=== PATIENT | female | born 1965 | race Caucasian/White ===

== ENCOUNTER 2017-01-09 08:07 | Day surgery (SDC) | payer OTHER ==
[~2017-01-09] VITALS: Ht 152.4 cm; Wt 59.1 kg
[~2017-01-09 08:07] MED LIST: ALPR0.5T3 PO; AMLO2.5T PO; IBS MEDICATION
[2017-01-09 08:25] VITALS: BP 115/91; PULSE 109; RESP 20; TEMP 98.3; O2SAT 93
[2017-01-09] MEDS ORDERED: LIDOCAINE 1%/EPINEPHrine 1:100,000 SOLN 20 ML VIAL ONE (08:42)
[2017-01-09] MEDS ORDERED: TRAM50TA PO (08:43)
[2017-01-09] MEDS ORDERED: [UNRECOGNIZED DRUG - OTHER] PO (08:43)
[2017-01-09] MEDS ORDERED: AMLO2.5T PO (08:43)
[2017-01-09] MEDS ORDERED: ALPR0.5T3 PO (08:43)
[2017-01-09] MEDS ORDERED: CHLORHEXIDINE GLUCONATE 2 % 1 PACK (2 CLOTHS) TOPICAL SCH (09:00)
[2017-01-09] MEDS ORDERED: VANCOMYCIN 1000 MG/NS 250 ML - implanted port/tunneled catheter IV SCH ×2 (09:00)
[2017-01-09] MEDS ORDERED: SODIUM CHLORIDE 0.9% 1000 ML IV SCH (09:00)
[2017-01-09] MEDS ORDERED: POVIDONE IODINE 5% (ANTISEPSIS KIT) 4 APPLICATIONS EACH NARE SCH (09:00)
[2017-01-09] MEDS ORDERED: ceFAZolin 2 GM PREMIX 50 ML - implanted port/tunneled catheter insertion IV SCH (09:00)
[2017-01-09] MEDS ORDERED: fentaNYL CITRATE 250 MCG/5 ML AMP ONE (09:28)
[2017-01-09] MEDS ORDERED: MIDAZOLAM HCL 5 MG/5 ML VIAL ONE (09:28)
[2017-01-09] MEDS ORDERED: MIDAZOLAM HCL 2 MG/2 ML VIAL ONE (10:22)
[2017-01-09] MEDS ORDERED: IOHEXOL 350 MG/ML 50 ML BTL (for RAD DIAG) IV ONE (10:57)
[2017-01-09 11:00] VITALS: BP 113/78; PULSE 90; RESP 18; TEMP 97.8; O2SAT 92
[2017-01-09 11:15] VITALS: BP 120/81; PULSE 94; RESP 18; O2SAT 92
[2017-01-09 11:45] VITALS: BP 119/81; PULSE 90; RESP 18; O2SAT 98
--- NOTE | 2017-01-09 11:57 | PD.RAD ---
Post Procedure Progress Note Pre Procedure Diagnosis: (1) Poorly functioning Port Post Procedure Diagnosis: (1) Poorly functioning Port Procedure Date: Jan 09, 2017 Supervising Radiologist: Jonathan Herrmann Proceduralist/Assist: Leann Ku RT(R), Doc Roa RT(R)() Anesthesia: Conscious Sedation Plan of Activity Patient to Unit: ROPU Patient Condition: Good See PACS Report for procedural detail/treatment Central Venous Access Device Procedure 1 Right Infusaport Removal Procedure 2 Left Infusaport Placement single lumen Jonathan Herrmann MD Jan 09, 2017 11:57
[2017-01-09] MEDS ORDERED: SODIUM CHLORIDE 0.9% FLUSH 5 ML FLUSH IVF PRN (12:00)
[2017-01-09 12:15] VITALS: BP 107/76; PULSE 92; RESP 18; O2SAT 98
[2017-01-09 13:05] VITALS: BP 106/75; PULSE 99; RESP 18; O2SAT 98
--- NOTE | 2017-01-10 09:29 | RADRPT ---
EXAM DATE/TIME: 01/09/2017 00:00 [facility] COMPARISON: No previous studies available for comparison. INDICATIONS : Patient has history of bile duct cancer, needs new port. MEDICAL HISTORY : HTN,Intrahepatic cholangiocarcinoma SURGICAL HISTORY : RT port ,Cholecystectomy, Liver resection,Left nephrectomy ENCOUNTER: Initial ACUITY: > 1 year PAIN SCORE: 0/10 SEDATION TIME: 60 minutes 1.) 6 mg midazolam (Versed) IV 2.) 250 mcg fentanyl (Sublimaze) IV Prophylactic antibiotics were administered with appropriate pre-procedure timing. Vancomycin within 2 hrs of procedure, Ancef (or alternative) within 1 hr of procedure. PROCEDURE : 1. Removal of Gtuxtj-e-jgju. 2. Conscious sedation with continuous EKG and oximetry monitoring. The risk, benefits and potential complications of Fauaep-q-Brae removal were discussed. Written conse nt was obtained. The patient was placed supine. The chest wall was prepped in sterile fashion. Full sterile techniqu e was used, including cap, mask, sterile gloves and gown, and a large sterile sheet. Hand hygiene an d 2% chlorhexidine and/or Betadine/alcohol prep was utilized per protocol for cutaneous antisepsis. The skin and subcutaneous tissues were infiltrated with local anesthetic solution. A small incision w as made, the subcutaneous pocket was opened. The port was dissected from the subcutaneous tissues and easily removed in one piece. The pocket incision was closed with subcuticular Vicryl suture. Steri -Strips were applied. Conscious sedation was performed with the prescribed dosages and duration as above. The patient tole rated the procedure well and there were no complications. EKG and oximetry remained stable throughou t the procedure. The patient was sent to post anesthesia recovery in stable condition. CONCLUSION: Uncomplicated port removal as above. Jonathan Herrmann MD on January 10, 2017 at 9:28 Board Certified Radiologist. This report was verified electronically.
--- NOTE | 2017-01-10 09:30 | RADRPT ---
EXAM DATE/TIME: 01/09/2017 08:41 [facility] COMPARISON: No previous studies available for comparison. INDICATIONS : Patient has history of bile duct cancer, in need of port. MEDICAL HISTORY : Intrahepatic cholangiocarcinona,HTN SURGICAL HISTORY : Right Port, Cholecystectomy, liver resection, left nephrectomy ENCOUNTER: Initial ACUITY: >1 year PAIN SCORE: 0/10 FLUORO TIME: 1.9 minutes SEDATION TIME: 60 minutes ACCESS: Right external jugular vein SEDATION: 1.) 6 mg midazolam (Versed) IV 2.) 250 mcg fentanyl (Sublimaze) IV Prophylactic antibiotics were administered with appropriate pre-procedure timing. Vancomycin within 2 hours of procedure, Ancef (or alternative) within 1 hour of procedure. DEVICE: 1. 8 Uzbek single lumen Bard Power Port PROCEDURE : 1. Continuous pulse oximetry and EKG monitoring. 2. Intravenous conscious sedation. 3. Ultrasound guidance for venous access. 4. Fluoroscopic guided implantable central venous port placement. The patient was placed supine. The neck was prepped in sterile fashion. Full sterile technique was u sed, including cap, mask, sterile gloves and gown, and a large sterile sheet. Hand hygiene and 2% ch lorhexidine Betadine was utilized per protocol for cutaneous antisepsis with appropriate dry time for site. The skin and subcutaneous tissues were infiltrated with local anesthetic solution. Under direct ultrasound guidance, central venous access was accomplished in the targeted vessel. The ultrasound images depicting access guidance were stored and saved to PACS for permanent record. A s ubcutaneous pocket was created using blunt dissection. The port was introduced to the pocket. The c atheter tubing was fed through a subcutaneous tunnel to the venotomy site. The catheter tubing was c ut to a suitable length and then was introduced through a valved Peel-Away sheath and positioned with catheter tubing tip at the cavo-atrial junction level. The pocket incision was closed with subcutic ular Vicryl suture. Steri-Strips were applied. The port was flushed and locked with heparin solutio n per protocol. Sterile dressing was applied to the site. The patient tolerated the procedure well. Conscious sedation was performed with the prescribed dosages and duration as above. The patient dakota ated the procedure well and there were no complications. EKG and oximetry remained stable throughout the procedure. The patient was sent to post anesthesia recovery in stable condition. CONCLUSION: Uncomplicated ultrasound and fluoroscopic guided implanted central venous port catheter placement as described in detail above. An 8 Uzbek Power port was placed. Jonathan Herrmann MD on January 10, 2017 at 9:28 Board Certified Radiologist. This report was verified electronically.
== END 2017-01-09 13:23 | disposition home or self-care (01) ==
LOC: HROP 08:07 → HRIP 08:08 → HROP 13:23
PROVIDERS: ATTEND Internal Medicine Hematology & Oncology
DX: Z45.2 Encounter for adjustment and management of vascular access device (principal); C22.1 Intrahepatic bile duct carcinoma; I10 Essential (primary) hypertension
CPT/HCPCS: 36561; 36590; 76937; 77001; 99152; 99153; C1769; C1788; J0690; J1642; J2250; J3010; J3370; J7030; J7050; Q9967

== ENCOUNTER 2018-05-07 21:16 | Inpatient (IN) | payer OTHER ==
[~2018-05-07] VITALS: Ht 154.9 cm; Wt 52.9 kg
[~2018-05-07 21:16] MED LIST changes: +ALPRAZolam 0.5 MG TAB PO PRN; +CALCIUM CARBONATE 500 MG CHEWABLE TAB CHEW PRN; +CEPH-460 PO; +DOCUSATE SODIUM 100 MG CAP PO PRN; +HYDR-3133 PO; -IBS MEDICATION; +MAGNESIUM HYDROXIDE SUSP 30 ML CUP PO PRN; +OXYC1CAP PO; +PROMETHAZINE INJ 25 MG/ML VIAL IM PRN; +SODIUM CHLOR 0.9% 1000 ML INJ 1,000 ML IV ONE; +SODIUM CHLORIDE 0.9% FLUSH 10 ML FLUSH IV FLUSH PRN; +TEMAZEPAM 15 MG CAP PO PRN; +TRAM50TA PO; +ZOFR4TAB3 SL; +[UNRECOGNIZED DRUG - OTHER] PO
[2018-05-07 21:22] VITALS: BP 113/87; PULSE 121; RESP 20; TEMP 97.1; O2SAT 93
[2018-05-07] MEDS: NS + KCL 20 MEQ INJ 1,000 ML IV SCH (22:02)
[2018-05-07] MEDS: SODIUM CHLORIDE 0.9% FLUSH 10 ML FLUSH IV FLUSH SCH (22:03)
[2018-05-08 00:32] VITALS: BP 94/72; PULSE 105; RESP 20; TEMP 100; O2SAT 93
[2018-05-08] MEDS: NS + KCL 20 MEQ INJ 1,000 ML IV SCH ×3 (03:10→19:36)
[2018-05-08 07:01] LABS: AUTOMATED NEUTROPHIL # 2.6 TH/MM3 (1.8-7.7); BASOPHIL % 0.6 % (0.0-2.0); EOSINOPHIL # 0.1 TH/MM3 (0-0.4); EOSINOPHIL % 2.8 % (0.0-4.0); HEMATOCRIT 31.5 % (35.0-46.0); LYMPH % 21.2 % (9.0-44.0); MEAN CELL VOLUME 94.7 FL (80.0-100.0); MEAN CORPUSCULAR HGB CONC 34.8 % (32.0-36.0); MEAN PLATELET VOLUME 7.2 FL (7.0-11.0); MONO % 17.7 % (0.0-8.0); MONOCYTE # 0.8 TH/MM3 (0-0.9); NEUT % 57.7 % (16.0-70.0); PLATELET COUNT 168 TH/MM3 (150-450); RED BLOOD COUNT 3.33 MIL/MM3 (4.00-5.30); WHITE BLOOD COUNT 4.5 TH/MM3 (4.0-11.0)
[2018-05-08 07:20] LABS: ALBUMIN 2.2 GM/DL (3.4-5.0); ALKALINE PHOSPHATASE 66 U/L (45-117); BLOOD UREA NITROGEN 4 MG/DL (7-18); CALCIUM 8.1 MG/DL (8.5-10.1); CREATININE 0.59 MG/DL (0.50-1.00); GLOMERULAR FILTRATION RATE 106 ML/MIN (>89); GLUCOSE,RANDOM 66 MG/DL (74-106); TOTAL PROTEIN 5.2 GM/DL (6.4-8.2)
[2018-05-08 07:21] LABS: ALT (GPT) 14 U/L (10-53); AST (GOT) 33 U/L (15-37); BICARBONATE 21.5 MEQ/L (21.0-32.0); CHLORIDE 103 MEQ/L (98-107); SODIUM (NA) 137 MEQ/L (136-145); TOTAL BILIRUBIN ADULT 0.8 MG/DL (0.2-1.0)
[2018-05-08 08:00] VITALS: BP 92/68; PULSE 104; RESP 16; TEMP 100.8; O2SAT 98
[2018-05-08] MEDS: SODIUM CHLORIDE 0.9% FLUSH 10 ML FLUSH IV FLUSH SCH ×2 (09:00→21:00)
[2018-05-08 09:06] VITALS: BP 133/70; PULSE 72; RESP 17; TEMP 97.8; O2SAT 94
[2018-05-08] MEDS: ACETAMINOPHEN 325 MG TAB PO PRN (11:12)
[2018-05-08 12:00] VITALS: BP 90/52; PULSE 100; RESP 16; TEMP 97.3; O2SAT 98
--- NOTE | 2018-05-08 13:01 | HHI.HP ---
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 The patient presented to the hospital with complaint of intractable nausea and vomiting. She has chronic abdominal pain and states that she has not been able to take her pain medications due to vomiting. Workup in the emergency room with urinalysis concerning for UTI. Has been requiring IV antiemetics. Patient reports she has been doing fairly well from her cancer standpoint. She has a follow-up appointment with her oncologist at [facility] in a couple of weeks. Last bowel movement was yesterday. She denies dysuria or urinary frequency. She has 1 functioning kidney. Prior history of left nephrectomy. Review of Systems Constitutional: DENIES: Fever, Chills Respiratory: DENIES: Shortness of breath Gastrointestinal: COMPLAINS OF: Abdominal pain, Nausea, Vomiting Genitourinary: DENIES: Dysuria Except as stated in HPI: all other systems reviewed are Neg Past Family Social History Past Medical History Metastatic cholangiocarcinoma to the liver, lungs Hyperlipidemia Hypertension Nonfunctioning left kidney status post nephrectomy Irritable bowel syndrome Anxiety Past Surgical History Port placement Cholecystectomy in 2014 Liver resection in 2013 Nephrectomy left in 2011 Reported Medications Reported Meds & Active Scripts Active Zofran Odt (Ondansetron Odt) 4 Mg Tab 4 Mg SL Q6HR PRN Reported Oxycodone (Oxycodone HCl) 5 Mg Cap 5 Mg PO Q4H PRN [nausea] 1 Tab PO DIRECTED PRN Tramadol (Tramadol HCl) 50 Mg Tab 50 Mg PO TID PRN Alprazolam 0.5 Mg Tab 0.5 Mg PO TID PRN Amlodipine (Amlodipine Besylate) 2.5 Mg Tab 2.5 Mg PO HS Allergies: Coded Allergies: bee venom protein (honey bee) (Verified Allergy, Severe, Hives, 05/07/18) pegfilgrastim (Verified Allergy, Severe, Swelling, 05/07/18) pt. denies sulfamethoxazole (Verified Allergy, Severe, RASH, WEAKNESS, N/V, 05/07/18) trimethoprim (Verified Allergy, Severe, RASH, WEAKNESS, N/V, 05/07/18) diatrizoate meglumine (Verified Adverse Reaction, Mild, Nausea/Vomiting, ) DOES NOT HAVE REACTION TO CONTRAST BUT HAS NAUSEA; HAS NEVER BEEN PREMEDICATED FOR CONTRAST; ONLY HAS ONE KIDNEY gadobenic acid (Verified Adverse Reaction, Mild, Nausea/Vomiting, 05/07/18) DOES NOT HAVE REACTION TO CONTRAST BUT HAS NAUSEA; HAS NEVER BEEN PREMEDICATED FOR CONTRAST; ONLY HAS ONE KIDNEY gadodiamide (Verified Adverse Reaction, Mild, Nausea/Vomiting, 05/07/18) DOES NOT HAVE REACTION TO CONTRAST BUT HAS NAUSEA; HAS NEVER BEEN PREMEDICATED FOR CONTRAST; ONLY HAS ONE KIDNEY gadoteridol (Verified Adverse Reaction, Mild, Nausea/Vomiting, 05/07/18) DOES NOT HAVE REACTION TO CONTRAST BUT HAS NAUSEA; HAS NEVER BEEN PREMEDICATED FOR CONTRAST; ONLY HAS ONE KIDNEY iodixanol (Verified Adverse Reaction, Mild, Nausea/Vomiting, 05/07/18) DOES NOT HAVE REACTION TO CONTRAST BUT HAS NAUSEA; HAS NEVER BEEN PREMEDICATED FOR CONTRAST; ONLY HAS ONE KIDNEY iohexol (Verified Adverse Reaction, Mild, Nausea/Vomiting, 05/07/18) DOES NOT HAVE REACTION TO CONTRAST BUT HAS NAUSEA; HAS NEVER BEEN PREMEDICATED FOR CONTRAST; ONLY HAS ONE KIDNEY Family History Reviewed and found to be noncontributory. Social History Denies tobacco or alcohol use. Physical Exam Vital Signs Vital Signs Date Time Temp Pulse Resp B/P (MAP) Pulse Ox O2 Delivery O2 Flow Rate FiO2 05/08/18 09:06 05/08/18 08:00 100.8 104 16 92/68 (76) 98 05/08/18 00:32 100.0 105 20 94/72 (79) 93 05/07/18 21:22 97.1 121 20 113/87 (96) 93 Physical Exam GENERAL: Patient appears older than stated age, in no apparent distress. SKIN: No rashes, ecchymoses or lesions. Cool and dry. HEAD: Atraumatic. Normocephalic. No temporal or scalp tenderness. EYES: Pupils equal round and reactive. Extraocular motions intact. No scleral icterus. No injection or drainage. ENT: Nose without bleeding, purulent drainage or septal hematoma. Throat without erythema, tonsillar hypertrophy or exudate. Uvula midline. Airway patent. NECK: Trachea midline. No JVD or lymphadenopathy. Supple, nontender, no meningeal signs. CARDIOVASCULAR: Regular rate and rhythm without murmurs, gallops, or rubs. RESPIRATORY: Clear to auscultation. Breath sounds equal bilaterally. No wheezes , rales, or rhonchi. GASTROINTESTINAL: Abdomen soft, diffusely tender to palpation. Normal and active bowel sounds. MUSCULOSKELETAL: Extremities without clubbing, cyanosis, or edema. No joint tenderness, effusion, or edema noted. No calf tenderness. Negative Homans sign bilaterally. NEUROLOGICAL: Awake and alert. Cranial nerves II through XII intact. Motor and sensory grossly within normal limits. Five out of 5 muscle strength in all muscle groups. Normal speech. Laboratory Laboratory Tests Test 05/08/18 06:15 White Blood Count 4.5 Red Blood Count 3.33 Hemoglobin 11.0 Hematocrit 31.5 Mean Corpuscular Volume 94.7 Mean Corpuscular Hemoglobin 33.0 Mean Corpuscular Hemoglobin Concent 34.8 Red Cell Distribution Width 13.0 Platelet Count 168 Mean Platelet Volume 7.2 Neutrophils (%) (Auto) 57.7 Lymphocytes (%) (Auto) 21.2 Monocytes (%) (Auto) 17.7 Eosinophils (%) (Auto) 2.8 Basophils (%) (Auto) 0.6 Neutrophils # (Auto) 2.6 Lymphocytes # (Auto) 1.0 Monocytes # (Auto) 0.8 Eosinophils # (Auto) 0.1 Basophils # (Auto) 0.0 CBC Comment DIFF FINAL Differential Comment Blood Urea Nitrogen 4 Creatinine 0.59 Random Glucose 66 Total Protein 5.2 Albumin 2.2 Calcium Level 8.1 Alkaline Phosphatase 66 Aspartate Amino Transf (AST/SGOT) 33 Alanine Aminotransferase (ALT/SGPT) 14 Total Bilirubin 0.8 Sodium Level 137 Potassium Level 3.4 Chloride Level 103 Carbon Dioxide Level 21.5 Anion Gap 13 Estimat Glomerular Filtration Rate 106 Result Diagram: 05/08/1815 05/08/1815 Caprini VTE Risk Assessment Caprini VTE Risk Assessment: Mod/High Risk (score >= 2) Caprini Risk Assessment Model Point Value = 1 Point Value = 2 Point Value = 3 Point Value = 5 Age 41-60 Minor surgery BMI > 25 kg/m2 Swollen legs Varicose veins or History of unexplained or recurrent spontaneous Oral contraceptives or hormone replacement Sepsis (< 1 month) Serious lung disease, including pneumonia (< 1 month) Abnormal pulmonary function Acute myocardial infarction Congestive heart failure (< 1 month) History of inflammatory bowel disease Medical patient at bed rest Age 61-74 Arthroscopic surgery Major open surgery (> 45 min) Laparoscopic surgery (> 45 min) Malignancy Confined to bed (> 72 hours) Immobilizing plaster cast Central venous access Age >= 75 History of VTE Family history of VTE Factor V Leiden Prothrombin [id number] Lupus anticoagulant Anticardiolipin antibodies Elevated serum homocysteine Heparin-induced thrombocytopenia Other congenital or acquired thrombophilia Stroke (< 1 month) Elective arthroplasty Hip, pelvis, or leg fracture Acute spinal cord injury (< 1 month) Prophylaxis Regimen Total Risk Factor Score Risk Level Prophylaxis Regimen 0-1 Low Early ambulation 2 Moderate Order ONE of the following: *Sequential Compression Device (SCD) *Heparin 5000 units SQ BID 3-4 Higher Order ONE of the following medications: *Heparin 5000 units SQ TID *Enoxaparin/Lovenox 40 mg SQ daily (WT < 150 kg, CrCl > 30 mL/min) *Enoxaparin/Lovenox 30 mg SQ daily (WT < 150 kg, CrCl > 10-29 mL/min) *Enoxaparin/Lovenox 30 mg SQ BID (WT < 150 kg, CrCl > 30 mL/min) AND/OR *Sequential Compression Device (SCD) 5 or more Highest Order ONE of the following medications: *Heparin 5000 units SQ TID (Preferred with Epidurals) *Enoxaparin/Lovenox 40 mg SQ daily (WT < 150 kg, CrCl > 30 mL/min) *Enoxaparin/Lovenox 30 mg SQ daily (WT < 150 kg, CrCl > 10-29 mL/min) *Enoxaparin/Lovenox 30 mg SQ BID (WT < 150 kg, CrCl > 30 mL/min) AND *Sequential Compression Device (SCD) Assessment and Plan Problem List: (1) Intractable nausea and vomiting ICD Code: R11.2 - Nausea with vomiting, unspecified Plan: Intractable nausea and vomiting in the cancer patient. She has been receiving immunotherapy. Probable UTI contributing. - Continue supportive care with IV fluid and antiemetics. She is improving. Treat UTI. (2) UTI (urinary tract infection) ICD Code: N39.0 - Urinary tract infection, site not specified Plan: Continue Rocephin Follow cultures (3) Cholangiocarcinoma metastatic to liver ICD Code: C22.1 - Intrahepatic bile duct carcinoma; C78.7 - Secondary malignant neoplasm of liver and intrahepatic bile duct Plan: Patient is currently receiving immunotherapy at [facility]. Advised her to follow-up outpatient. (4) Cholangiocarcinoma metastatic to left lung ICD Code: C22.1 - Intrahepatic bile duct carcinoma; C78.02 - Secondary malignant neoplasm of left lung Plan: Patient is currently receiving immunotherapy at [facility]. Advised her to follow-up outpatient. (5) Cholangiocarcinoma metastatic to right lung ICD Code: C22.1 - Intrahepatic bile duct carcinoma; C78.01 - Secondary malignant neoplasm of right lung Plan: Patient is currently receiving immunotherapy at [facility]. Advised her to follow-up outpatient. (6) Hypertension ICD Code: I10 - Essential (primary) hypertension (7) Anxiety ICD Code: F41.9 - Anxiety disorder, unspecified Plan: Continue home dose medications (8) Chronic pain ICD Code: G89.29 - Other chronic pain Plan: Continue home dose medications Briseyda Phelps MD May 08, 2018 13:01
[2018-05-08] MEDS ORDERED: cefTRIAXone INJ 1,000 MG in SODIUM CHLORIDE 0.9% INJ 100 ML IV SCH (16:00)
[2018-05-08 16:52] VITALS: BP 98/60; PULSE 96; RESP 18; TEMP 97.5; O2SAT 97
[2018-05-08 20:56] VITALS: BP 103/84; PULSE 94; RESP 20; TEMP 98.9; O2SAT 93
[2018-05-09] VITALS (8 sets, daily range): BP systolic 94–121; BP diastolic 58–77; PULSE 103–123; RESP 18–20; TEMP 97.1–102.3; O2SAT 86–95
[2018-05-09] MEDS: ACETAMINOPHEN 325 MG TAB PO PRN ×2 (00:11→15:40)
[2018-05-09 06:36] LABS: HEMATOCRIT 34.9 % (35.0-46.0); HEMOGLOBIN 11.1 GM/DL (11.6-15.3); MEAN CELL VOLUME 96.6 FL (80.0-100.0); MEAN CORPUSCULAR HEMOGLOBIN 30.8 PG (27.0-34.0); MEAN CORPUSCULAR HGB CONC 31.9 % (32.0-36.0); MEAN PLATELET VOLUME 6.7 FL (7.0-11.0); PLATELET COUNT 179 TH/MM3 (150-450); RED BLOOD COUNT 3.61 MIL/MM3 (4.00-5.30); RED CELL DISTRIBUTION WIDTH 12.6 % (11.6-17.2); WHITE BLOOD COUNT 4.2 TH/MM3 (4.0-11.0)
[2018-05-09 06:44] LABS: BICARBONATE 21.3 MEQ/L (21.0-32.0)
[2018-05-09 06:47] LABS: CREATININE 0.45 MG/DL (0.50-1.00)
[2018-05-09] MEDS: SODIUM CHLORIDE 0.9% FLUSH 10 ML FLUSH IV FLUSH SCH ×2 (08:06→21:00)
[2018-05-09] MEDS: METOCLOPRAMIDE HCL 10 MG/2 ML VIAL IVS PRN ×2 (10:17→20:40)
[2018-05-09] MEDS: CEFEPIME INJ 2,000 MG in SODIUM CHLORIDE 0.9% INJ 100 ML IV SCH ×2 (10:17→17:20)
[2018-05-09] MEDS: NS + KCL 20 MEQ INJ 1,000 ML IV SCH (10:18)
[2018-05-09] MEDS ORDERED: ONDANSETRON ODT 4 MG TAB PO PRN (11:00)
--- NOTE | 2018-05-09 11:00 | RADRPT ---
EXAM DATE: 05/09/2018 10:53 AM EDT AGE/SEX: 52 years / Female INDICATIONS: Fever CLINICAL DATA: This is the patient's initial encounter. Patient reports that signs and symptoms have been present for 1 day and indicates a pain score of 2/10. MEDICAL/SURGICAL HISTORY: Carcinoma, lung. Carcinoma, liver . Hepatectomy, left nephrectomy COMPARISON: [facility], CT CHEST W/O CONTRAST, 08/02/2017. . FINDINGS: Frontal and lateral views of the chest demonstrate a normal-sized cardiac silhouette. Left chest wall Xjenuv-y-Kair is present with distal tip in the superior vena cava. There is a moderate size left pl eural-based opacity characteristic of an effusion. Small right pleural effusion is seen. There is com pressive atelectasis and mild consolidation in the lower lung zones bilaterally. Multiple bilateral p ulmonary nodules remain visualized. There is no pneumothorax. Bones demonstrate no acute finding. The re are innumerable surgical clips in the upper abdomen. CONCLUSION: 1. Moderate size left pleural effusion with associated compressive atelectasis and/or consolidation. 2. There is mild atelectasis versus consolidation at the right lung base. A small right pleural effu love is present. 3. Multiple bilateral pulmonary nodules are consistent with the known history of metastatic disease. Electronically signed by: Oscar Martinez MD 05/09/2018 10:58 AM EDT
--- NOTE | 2018-05-09 11:28 | HHI.PR ---
Subjective Remarks Pt not very talkative. She does admit to nausea and is agreeable to getting nausea medication. Admits to abdominal pain. dneies any vomiting. Pt states she is cold. Objective Vitals Vital Signs Date Time Temp Pulse Resp B/P (MAP) Pulse Ox O2 Delivery O2 Flow Rate FiO2 05/09/18 07:58 99.3 109 18 107/77 (87) 05/09/18 03:48 99.4 106 20 94/58 (70) 90 05/09/18 00:15 20 92 05/09/18 00:11 101.5 108 20 104/76 (85) 86 05/08/18 20:56 98.9 94 20 103/84 (90) 93 05/08/18 16:52 97.5 96 18 98/60 (73) 97 05/08/18 12:00 97.3 100 16 90/52 (65) 98 I/O 05/08/18 05/08/18 05/08/18 05/09/18 05/09/18 05/09/18 07:00 15:00 23:00 07:00 15:00 23:00 Intake Total 1683 ml 799 ml 1200 ml Output Total 3 ml Balance 1683 ml 796 ml 1200 ml Intake IV Total 1683 ml 799 ml 1200 ml Output Urine Total 3 ml # Voids 2 1 Result Diagram: 05/09/18 0600 05/09/18 0600 Imaging Last Impressions Chest X-Ray 05/09/18 0000 Signed Impressions: CONCLUSION: 1. Moderate size left pleural effusion with associated compressive atelectasis and/or consolidation. 2. There is mild atelectasis versus consolidation at the right lung base. A sm all right pleural effusion is present. 3. Multiple bilateral pulmonary nodules are consistent with the known history of metastatic disease. Objective Remarks GENERAL: Patient appears older than stated age CARDIOVASCULAR: Regular rate and rhythm without murmurs RESPIRATORY: Clear to auscultation. Breath sounds equal bilaterally. No wheezes GASTROINTESTINAL: Abdomen soft, diffusely tender to palpation. Normal and active bowel sounds. MUSCULOSKELETAL: Extremities without edema. NEUROLOGICAL: Awake and alert but very quiet. hold covers over herself. Normal speech. 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 She has been receiving immunotherapy. U/A initially was concerning for a UTI however urine cx 10-50, 000 CFU/ML mixed gram pos sophie (prob contaminant) (2) fever: Tmax 101.5 source unknown. Urine cx neg. blood cx neg x 2 days. switch abx to cefepime. ID consulted for further recs. (3) Cholangiocarcinoma metastatic to liver Patient is currently receiving immunotherapy at [facility]. Advised her to follow-up outpatient. Discussed w and he tells me that he will be coming later today and will bring her med list for us to know what chemo she is on. (4) Cholangiocarcinoma metastatic to left and right lung Patient is currently receiving immunotherapy at [facility]. Advised her to follow-up outpatient. (5) Hypertension stable (7) Anxiety Continue home dose medications (8) Chronic pain Continue home dose medications Discharge Planning ID consulted for further eval for fevers of unknown source. Suly Valdovinos MD May 09, 2018 11:28
--- NOTE | 2018-05-09 14:39 | RADRPT ---
EXAM DATE: 05/09/2018 1:14 PM EDT AGE/SEX: 52 years / Female INDICATIONS: Short of breath. Abnormal chest x-ray. Evaluate for pleural effusion. CLINICAL DATA: This is the patient's initial encounter. Patient reports that signs and symptoms have been present for 2 days and indicates a pain score of 0/10. MEDICAL/SURGICAL HISTORY: Cardiovascular disease. Hypertension. Liver cancer. Lung METS. Cholecy stectomy. Nephrectomy, left. Partial hepatectomy. RADIATION DOSE: 6.45 CTDI (mGy) COMPARISON: [facility], CT CHEST W/O CONTRAST, 08/02/2017. . TECHNIQUE: Multiple contiguous axial images were obtained through the chest without contrast. Image s were obtained in suspended respiration using multiple row detector helical technique. Using automa yuli exposure control and adjustment of the mA and/or kV according to patient size, radiation dose was kept as low as reasonably achievable to obtain optimal diagnostic quality images. FINDINGS: There is a tiny subcentimeter spiculated density right apex of the lung. There are multiple nodules a nd masses in both lungs the largest one is in right upper lobe measures almost 1 cm in size highly lee spicious for metastatic disease. Compared to the prior study from 2017 the nodules appears smaller fo r the most part. Large left pleural effusion is present. In the left upper lobe anteriorly there lucas ears to be a pleural-based mass measures almost 3.4 cm in size consistent with pleural-based metastat ic disease measures almost 1.5 cm previously and therefore larger since 2017. There is a separate ple ural-based metastatic disease in the left chest anterolaterally measures 2.5 cm also larger. There ap pears to be loculated fluid as well in the right minor fissure measures 2 cm in size. There is dense airspace consolidation of left lower lung and/or compressive collapse. Calcified left hilar lymph nod e is present benign in appearance and central obstructing mass in the left hilar area is difficult to exclude there are diverticuli in the visualized colon of the upper abdomen. . There are small lymph nodes within the mediastinum the largest one in pretracheal location measures almost 1.2 cm in size m ost likely benign. There is a tiny right pleural effusion. CONCLUSION: 1. There are lung nodules consistent with metastatic disease, however overall they are smaller lupis red to the prior study from 2017. 2. There is a large left pleural effusion not present previously with pleural-based masses on the le ft side appears larger since the prior exam characteristic of worsening pleural-based metastatic dise ase. 3. Left lung base consolidation and/or compressive collapse. Electronically signed by: Evelin Hendrickson MD 05/09/2018 1:31 PM EDT
[2018-05-10] VITALS (7 sets, daily range): BP systolic 92–158; BP diastolic 53–85; PULSE 100–122; RESP 18–20; TEMP 97.4–101.4; O2SAT 91–92
[2018-05-10] MEDS: CEFEPIME INJ 2,000 MG in SODIUM CHLORIDE 0.9% INJ 100 ML IV SCH ×3 (03:10→20:29)
[2018-05-10] MEDS: NS + KCL 20 MEQ INJ 1,000 ML IV SCH ×3 (03:10→17:48)
[2018-05-10 06:47] LABS: CHLORIDE 102 MEQ/L (98-107); SODIUM (NA) 133 MEQ/L (136-145)
[2018-05-10 06:51] LABS: BICARBONATE 18.2 MEQ/L (21.0-32.0); CALCIUM 7.9 MG/DL (8.5-10.1); GLUCOSE,RANDOM 60 MG/DL (74-106)
[2018-05-10 06:52] LABS: BLOOD UREA NITROGEN LESS THAN 1 MG/DL (7-18)
[2018-05-10 06:55] LABS: CREATININE 0.48 MG/DL (0.50-1.00); GLOMERULAR FILTRATION RATE 135 ML/MIN (>89)
[2018-05-10 07:14] LABS: AUTOMATED NEUTROPHIL # 3.5 TH/MM3 (1.8-7.7); BASOPHIL % 0.3 % (0.0-2.0); EOSINOPHIL # 0.2 TH/MM3 (0-0.4); EOSINOPHIL % 4.2 % (0.0-4.0); HEMATOCRIT 31.9 % (35.0-46.0); LYMPH % 13.5 % (9.0-44.0); LYMPHOCYTE # 0.7 TH/MM3 (1.0-4.8); MEAN CELL VOLUME 94.8 FL (80.0-100.0); MEAN CORPUSCULAR HEMOGLOBIN 32.7 PG (27.0-34.0); MEAN CORPUSCULAR HGB CONC 34.5 % (32.0-36.0); MEAN PLATELET VOLUME 7.5 FL (7.0-11.0); MONO % 12.4 % (0.0-8.0); MONOCYTE # 0.6 TH/MM3 (0-0.9); NEUT % 69.6 % (16.0-70.0); PLATELET COUNT 171 TH/MM3 (150-450); RED BLOOD COUNT 3.37 MIL/MM3 (4.00-5.30)
[2018-05-10] MEDS ORDERED: MAGNESIUM OXIDE 400 MG TAB PO ONE (07:15)
[2018-05-10] MEDS: ACETAMINOPHEN 325 MG TAB PO PRN ×2 (08:48→23:55)
[2018-05-10] MEDS: SODIUM CHLORIDE 0.9% FLUSH 10 ML FLUSH IV FLUSH SCH ×2 (08:48→23:30)
[2018-05-10] MEDS: MAGNESIUM SULFATE 1 GM PREMIX 100 ML IV SCH ×2 (08:48→10:27)
[2018-05-10] MEDS: METOCLOPRAMIDE HCL 10 MG/2 ML VIAL IVS PRN (09:44)
--- NOTE | 2018-05-10 10:42 | HHI.PR ---
Subjective Remarks Pt feeling a little bit better today, had nausea earlier this morning but none at this time. Still w abdominal pain but this is chronic. Feels cold. Discussed w RN, pt received pain meds x 2 hours. Objective Vitals Vital Signs Date Time Temp Pulse Resp B/P (MAP) Pulse Ox O2 Delivery O2 Flow Rate FiO2 05/10/18 09:59 158/62 (94) 05/10/18 07:32 101.4 117 20 117/85 (96) 92 05/10/18 00:00 98.8 109 18 92/69 (77) 91 05/09/18 20:00 97.1 103 18 106/65 (79) 91 05/09/18 18:07 98.7 05/09/18 15:40 102.3 123 18 101/65 (77) 95 05/09/18 15:37 18 05/09/18 11:37 100.0 116 18 121/77 (92) I/O 05/09/18 05/09/18 05/09/18 05/10/18 05/10/18 05/10/18 07:00 15:00 23:00 07:00 15:00 23:00 Intake Total 1200 ml 1119 ml 240 ml Balance 1200 ml 1119 ml 240 ml Intake Oral 120 ml 240 ml IV Total 1200 ml 999 ml # Voids 1 2 1 Result Diagram: 05/10/18 0600 05/10/18 0600 Imaging Last Impressions Chest X-Ray 05/09/18 0000 Signed Impressions: CONCLUSION: 1. Moderate size left pleural effusion with associated compressive atelectasis and/or consolidation. 2. There is mild atelectasis versus consolidation at the right lung base. A sm all right pleural effusion is present. 3. Multiple bilateral pulmonary nodules are consistent with the known history of metastatic disease. Chest CT 05/09/18 0000 Signed Impressions: CONCLUSION: 1. There are lung nodules consistent with metastatic disease, however overall they are smaller compared to the prior study from 2017. 2. There is a large left pleural effusion not present previously with pleural- based masses on the left side appears larger since the prior exam characteristi c of worsening pleural-based metastatic disease. 3. Left lung base consolidation and/or compressive collapse. Objective Remarks GENERAL: Patient appears older than stated age CARDIOVASCULAR: Regular rate and rhythm without murmurs RESPIRATORY: Clear to auscultation. Breath sounds equal bilaterally. No wheezes GASTROINTESTINAL: Abdomen soft, diffusely tender to palpation. Normal and active bowel sounds. MUSCULOSKELETAL: Extremities without edema. NEUROLOGICAL: Awake and alert but very quiet. hold covers over herself. Normal speech. 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 She has been receiving immunotherapy. U/A initially was concerning for a UTI however urine cx 10-50, 000 CFU/ML mixed gram pos sophie (prob contaminant) (2) fever: Tmax 102.5 source unknown. Urine cx neg. blood cx neg x 2 days. on iv cefepime. ID consulted for further recs. CT chest shows large left pleural effusion not present previously w pleural based masses on the left side which appear larger since prior exam characteristic of worsening pleural-based metastatic disease. A consult has been placed to medical oncology team for further recs. Pt was seeing Dr. Blackmon prior to going to [facility]. 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 Advised her to follow-up outpatient. Discussed w and he brought in the latest CT chest/abd/pelvis and this has been placed on the chart. (4) Hypertension stable (5) Anxiety Continue home dose medications (6) Chronic pain Continue home dose medications Discharge Planning awaiting recs from ID and med onc Suly Valdovinos MD May 10, 2018 10:42
--- NOTE | 2018-05-10 13:43 | PD.ID.CON ---
History of Present Illness Service ID Consult Requested By Dr Valdovinos Reason for Consult fever. Metastatic bilie duct cancer Primary Care Physician Unknown Diagnoses: History of Present Illness 52 yo female with metastatic cholangiocarcinoma,with mets to the liver and lungs receiving immunotherapy at [facility]. The patient presented to the hospital with complaint of intractable nausea and vomiting. She also has some disuria Workup in the emergency room with urinalysis concerning for UTI. Has been requiring IV antiemetics. Patient reports she has been doing fairly well from her cancer standpoint. She has a follow-up appointment with her oncologist at [facility] in a couple of weeks. Last bowel movement was yesterday. She denies dysuria or urinary frequency. She has 1 functioning kidney. Prior history of left nephrectomy. Urine culture with mixed gram+ Blood clx negative @ 3 days No leukocytosis, but fever up to 102.3 she is on cefepime Review of Systems Except as stated in HPI: all other systems reviewed are Neg Past Family Social History Allergies: Coded Allergies: bee venom protein (honey bee) (Verified Allergy, Severe, Hives, 05/07/18) pegfilgrastim (Verified Allergy, Severe, Swelling, 05/07/18) pt. denies sulfamethoxazole (Verified Allergy, Severe, RASH, WEAKNESS, N/V, 05/07/18) trimethoprim (Verified Allergy, Severe, RASH, WEAKNESS, N/V, 05/07/18) diatrizoate meglumine (Verified Adverse Reaction, Mild, Nausea/Vomiting, ) DOES NOT HAVE REACTION TO CONTRAST BUT HAS NAUSEA; HAS NEVER BEEN PREMEDICATED FOR CONTRAST; ONLY HAS ONE KIDNEY gadobenic acid (Verified Adverse Reaction, Mild, Nausea/Vomiting, 05/07/18) DOES NOT HAVE REACTION TO CONTRAST BUT HAS NAUSEA; HAS NEVER BEEN PREMEDICATED FOR CONTRAST; ONLY HAS ONE KIDNEY gadodiamide (Verified Adverse Reaction, Mild, Nausea/Vomiting, 05/07/18) DOES NOT HAVE REACTION TO CONTRAST BUT HAS NAUSEA; HAS NEVER BEEN PREMEDICATED FOR CONTRAST; ONLY HAS ONE KIDNEY gadoteridol (Verified Adverse Reaction, Mild, Nausea/Vomiting, 05/07/18) DOES NOT HAVE REACTION TO CONTRAST BUT HAS NAUSEA; HAS NEVER BEEN PREMEDICATED FOR CONTRAST; ONLY HAS ONE KIDNEY iodixanol (Verified Adverse Reaction, Mild, Nausea/Vomiting, 05/07/18) DOES NOT HAVE REACTION TO CONTRAST BUT HAS NAUSEA; HAS NEVER BEEN PREMEDICATED FOR CONTRAST; ONLY HAS ONE KIDNEY iohexol (Verified Adverse Reaction, Mild, Nausea/Vomiting, 05/07/18) DOES NOT HAVE REACTION TO CONTRAST BUT HAS NAUSEA; HAS NEVER BEEN PREMEDICATED FOR CONTRAST; ONLY HAS ONE KIDNEY Past Medical History Metastatic cholangiocarcinoma to the liver, lungs Hyperlipidemia Hypertension Nonfunctioning left kidney status post nephrectomy Irritable bowel syndrome Anxiety Past Surgical History Port placement Cholecystectomy in 2014 Liver resection in 2013 Nephrectomy left in 2011 Active Ordered Medications Medications where reviewed in EMR Antibiotics Include: cefepime Family History Reviewed and found to be noncontributory. Social History Denies tobacco or alcohol use. Physical Exam Vital Signs Vital Signs Date Time Temp Pulse Resp B/P (MAP) Pulse Ox O2 Delivery O2 Flow Rate FiO2 05/10/18 11:14 98.9 112 20 95/53 (67) 92 05/10/18 09:59 158/62 (94) 05/10/18 07:32 101.4 117 20 117/85 (96) 92 05/10/18 00:00 98.8 109 18 92/69 (77) 91 05/09/18 20:00 97.1 103 18 106/65 (79) 91 05/09/18 18:07 98.7 05/09/18 15:40 102.3 123 18 101/65 (77) 95 05/09/18 15:37 18 Physical Exam CONSTITUTIONAL/GENERAL: This is an adequately nourished patient, in no apparent distress. TUBES/LINES/DRAINS: PORT in place L chest - site OK SKIN: No jaundice, rashes, or lesions. Ecchymoses on upper extremities. No wounds seen anteriorly. Skin temperature appropriate. + diaphoretic. HEAD: Atraumatic. Normocephalic. EYES: Pupils equal and round and reactive. Extraocular motions intact. No scleral icterus. No injection or drainage. Fundi not examined. ENT: Hearing grossly normal. Nose without bleeding or purulent drainage. Throat without visible erythema, exudates, masses, or lesions. NECK: Trachea midline. Supple, nontender. No palpable thyroid enlargement or nodularity. CARDIOVASCULAR: Regular rate and rhythm without murmurs, gallops, or rubs. No JVD. Peripheral pulses symmetric. RESPIRATORY/CHEST: Symmetric, unlabored respirations. Clear to auscultation. Breath sounds equal bilaterally. No wheezes, rales, or rhonchi. GASTROINTESTINAL: Abdomen soft, tender LUQ, ill defined mass, RUQ with well healed scar, nondistended. No hepato-splenomegaly, or palpable masses. No guarding. Bowel sounds present. GENITOURINARY: Without palpable bladder distension. MUSCULOSKELETAL: Extremities without clubbing, cyanosis, or edema. No joint tenderness or effusion noted. No calf tenderness. No mottling or clubbing. LYMPHATICS: No palpable cervical or supraclavicular adenopathy. NEUROLOGICAL: Awake and alert. Motor and sensory grossly within normal limits. Follows commands. Cognitively sharp. Moves all extremities. PSYCHIATRIC: No obvious anxiety/depression. no apparent hallucinations or other psychotic thought process. Laboratory Laboratory Tests Test 05/10/18 06:00 White Blood Count 5.0 Red Blood Count 3.37 Hemoglobin 11.0 Hematocrit 31.9 Mean Corpuscular Volume 94.8 Mean Corpuscular Hemoglobin 32.7 Mean Corpuscular Hemoglobin Concent 34.5 Red Cell Distribution Width 13.0 Platelet Count 171 Mean Platelet Volume 7.5 Neutrophils (%) (Auto) 69.6 Lymphocytes (%) (Auto) 13.5 Monocytes (%) (Auto) 12.4 Eosinophils (%) (Auto) 4.2 Basophils (%) (Auto) 0.3 Neutrophils # (Auto) 3.5 Lymphocytes # (Auto) 0.7 Monocytes # (Auto) 0.6 Eosinophils # (Auto) 0.2 Basophils # (Auto) 0.0 CBC Comment DIFF FINAL Differential Comment Blood Urea Nitrogen LESS THAN 1 Creatinine 0.48 Random Glucose 60 Calcium Level 7.9 Magnesium Level 1.0 Sodium Level 133 Potassium Level 3.6 Chloride Level 102 Carbon Dioxide Level 18.2 Anion Gap 13 Estimat Glomerular Filtration Rate 135 Date/Time Source Procedure Growth Status 05/09/18 10:26 Nasal Aspirate Influenza Types A,B Antigen (KAREN) - Final NEGATIVE FOR FLU A AND B ANTIGEN.... Complete Result Diagram: 05/10/18 0600 05/10/18 0600 Imaging Last Impressions Chest X-Ray 05/09/18 0000 Signed Impressions: CONCLUSION: 1. Moderate size left pleural effusion with associated compressive atelectasis and/or consolidation. 2. There is mild atelectasis versus consolidation at the right lung base. A sm all right pleural effusion is present. 3. Multiple bilateral pulmonary nodules are consistent with the known history of metastatic disease. Chest CT 05/09/18 0000 Signed Impressions: CONCLUSION: 1. There are lung nodules consistent with metastatic disease, however overall they are smaller compared to the prior study from 2017. 2. There is a large left pleural effusion not present previously with pleural- based masses on the left side appears larger since the prior exam characteristi c of worsening pleural-based metastatic disease. 3. Left lung base consolidation and/or compressive collapse. Assessment and Plan Assessment and Plan Metastatic cholangiocarcinoma, on imunotherapy LLL mass Fever - source ? line sepsis vs UTI vs non infectious (cancer) cont cefepime, high dose add vancomycin, micafungin STAT BC UA, C+S Discussed Condition With Rosie Hernandez MD May 10, 2018 13:43
[2018-05-10] MEDS ORDERED: Vancomycin Consult Pharmacy 1 EA OTHER SCH (14:00)
[2018-05-10 14:37] LABS: BILIRUBIN, URINE NEG (NEG); BLOOD, URINE NEG (NEG); GLUCOSE,URINE NEG (NEG); KETONE, URINE 40 mg/dL (NEG); NITRITE,URINE NEG (NEG); URINE COLOR YELLOW (YELLW/STRAW); URINE LEUKOCYTE ESTERASE NEG (NEG)
[2018-05-10 14:42] LABS: SQUAMOUS EPITHELIAL CELL URINE 0-5 /hpf (0-5); WBC, URINE 0-2 /hpf (0-5)
[2018-05-10] MEDS ORDERED: MICAFUNGIN INJ 150 MG in SODIUM CHLORIDE 0.9% INJ 100 ML IV SCH (16:00)
[2018-05-10] MEDS ORDERED: SUCRALFATE 1 GM/10 ML CUP PO ONE (17:30)
[2018-05-10] MEDS ORDERED: LORazepam 2 MG/ML VIAL IV PUSH PRN (17:30)
[2018-05-10] MEDS: PANTOPRAZOLE SODIUM 40 MG VIAL IV PUSH SCH (18:14)
[2018-05-10] MEDS: ONDANSETRON HCL 4 MG/2 ML VIAL IV PUSH SCH ×2 (18:19→23:28)
--- NOTE | 2018-05-10 18:24 | MB ---
cc: Lula Euceda MD, Ruby Anne E MD Leger,Suly MULLEN DATE: 05/10/2018 REFERRING PHYSICIAN: Dr. Suly Valdovinos. CHIEF COMPLAINT: Dr. Valdovinos requests a consultation for Mrs. Rosales regarding diagnosis of metastatic cholangiocarcinoma. HISTORY OF PRESENT ILLNESS: Mrs. Rosales is a 52-year-old woman, well known patient to Dr. Gisela Blackmon. She has a history of metastatic cholangiocarcinoma initially treated with gemcitabine cisplatin with excellent response for over a year. She was given subsequent lines of chemotherapy with FOLFOX, Xeloda and FOLFOX again. She had progression on her last visit with Dr. Blackmon on 08/28/2017. She elected to go to [facility] for a second opinion. She was offered participation in a phase 2 clinical trial. She brought in consent for phase 2 investigative response with study of nivolumab in patients with advanced refractory biliary tract cancer. The primary school principal is Derrell Carlin MD. She apparently is doing quite well. CT scan 03/26/2018 showed response to the single agent nivolumab for the advanced refractory biliary tract cancer. She was doing well until several weeks prior when she developed a great deal of nausea. She has not had nausea before with the nivolumab. She denies any headaches. She has some dizziness associated with the nausea. She was unable to have her breakfast today, as she had vomiting immediately after the bite. She has no appetite and subsequently lost weight. She denies any prior history of venous thromboembolic event, gastritis or ulcers. She was finally advised to come into the emergency room locally by her physicians at [facility] because of the persistent nausea and vomiting. This was also prompted by her family members. She denies any urinary complaints. She denies any fever at home; however, she has been afebrile during her hospitalization. Noted was a first temperature 100.0 on 05/08/2018. T-max on 05/10 at 7 a.m. was 101.4. No cultures obtained were positive. Cultures from 05/07/2018 still have no growth. Urinalysis showed mixed gram positive bacteria. She has a mild anemia. She is mildly hyponatremic with a sodium 133, potassium is normal. BUN is decreased. Review of blood pressure shows some systolic pressure less than 100 during her hospitalization. She denies any particular toxicity related to the nivolumab. She has had no endocrinopathy. She had a rash one time that resolved. She has no pneumonitis. No diarrhea. She feels fatigue in addition to the nausea and vomiting. I do not have thyroid function studies or cortisol levels. PAST MEDICAL HISTORY: Metastatic cholangiocarcinoma, hypercholesterolemia, irritable bowel syndrome, nonfunctioning left kidney, anxiety, hypertension. PAST SURGICAL HISTORY: Port placement, cholecystectomy, liver resection in 2013, left nephrectomy 2011. ALLERGIES: BEE VENOM, PEGFILGRASTIM, SULFAMETHOXAZOLE, TRIMETHOPRIM. CURRENT MEDICATIONS: 1. Vancomycin. 2. Micafungin 3. Cefepime 4. Reglan. 5. Potassium chloride. FAMILY HISTORY: Mother at age 56 of brain aneurysm. Father is alive. SOCIAL HISTORY: She is and lives with her . She worked as a property investor. She quit smoking several years ago. She has a [id number] smoking history. She consumes seven drinks per week. She denies any illicit drug use. PHYSICAL EXAMINATION: VITAL SIGNS: Temperature 97.4, heart rate 100, respiratory rate 20, blood pressure 99/63, saturation 92%. GENERAL: Ms. Rosales is a slender, well-developed woman. She was cold and curled up in bed at the time of the consultation. She was awake, alert, able to give a history. HEENT: Pupils are round, reactive to light and accommodation. Oropharynx is clear. NECK: Supple with no adenopathy. LUNGS: Diminished breath sounds at the left lung base. CARDIOVASCULAR: Reveals a tachycardia. ABDOMEN: Mildly distended, prominent mid epigastric area, presumably from the shifted liver. She has diffuse tenderness, primarily in the mid abdomen where she feels pressure. She has well-healed scars in the abdomen. LOWER EXTREMITIES: No edema. Good pulses. NEUROLOGIC: Nonfocal. LABORATORY DATA: Hemoglobin 11.0. Sodium 133, calcium 7.9, magnesium is low at 1.0. ASSESSMENT AND PLAN: Ms. Rosales is a 52-year-old woman with multiple medical problems described above. She is diagnosed with metastatic cholangiocarcinoma. She has exhausted standard therapy, chemotherapy/cytotoxic chemotherapy agents with her time with Dr. Blackmon. She was last seen by Dr. Blackmon in 09/2017. Since then, she has been under the care of Dr. Carlin at [facility]. She is participating in a clinical trial using a checkpoint inhibitor. Her last CT scan shows response to the checkpoint inhibitor. We discussed plans to evaluate for toxicity related to the checkpoint inhibitor, the etiology of her nausea. We will check a cortisol level, TSH. Cosyntropin test will be performed. She has episodes of hypotension and hyponatremia with suggests adrenal insufficiency. We understand that toxicity from the checkpoint inhibitor could be endocrinopathy. We will optimize her antiemetic regimen. I will schedule the Zofran dose. Alprazolam was discontinued in place for lorazepam, which has adjunctive properties to help with nausea and anxiety. Reglan is offered on an as needed basis. Gastroenterology is consulted to rule out obstruction or gastritis that may be contributing to the nausea. She has vomiting immediately after by mouth intake. A trial of Carafate will be given. Intravenous proton pump inhibitor started. Gastroenterology is consulted. She does not have a local account information clerk and the on-call physician will be called. Calcium carbonate is offered. We may consider switching her oral magnesium in light of her difficulty in by mouth intake to intravenous to replace the magnesium that is low. Fevers persisted. The source of fever is not clear. We will check repeat blood culture for the next temperature. We will also check stool for Clostridium difficile. She denies significant diarrhea symptoms. She has been on antibiotic therapy over the last several days, including micafungin. Her questions were answered to her satisfaction. MD MARIIA Mejía/ , 05:45 PM , 06:23 PM
[2018-05-10] MEDS: VANCOMYCIN INJ 800 MG in SODIUM CHLOR 0.9% 250 ML INJ 250 ML IV SCH (19:05)
[2018-05-10] MEDS ORDERED: MAGNESIUM OXIDE 400 MG TAB PO SCH (21:00)
[2018-05-10] MEDS ORDERED: MAGNESIUM SULFATE 1 GM PREMIX 100 ML IV ONE (21:00)
[2018-05-11 02:35] VITALS: TEMP 100.6
[2018-05-11] MEDS: CEFEPIME INJ 2,000 MG in SODIUM CHLORIDE 0.9% INJ 100 ML IV SCH ×2 (02:37→10:34)
[2018-05-11] MEDS: NS + KCL 20 MEQ INJ 1,000 ML IV SCH ×2 (04:04→12:35)
[2018-05-11] MEDS: VANCOMYCIN INJ 800 MG in SODIUM CHLOR 0.9% 250 ML INJ 250 ML IV SCH (04:44)
[2018-05-11] MEDS ORDERED: COSYNTROPIN 0.25 MG VIAL IV PUSH ONE (06:05)
[2018-05-11] MEDS: ONDANSETRON HCL 4 MG/2 ML VIAL IV PUSH SCH ×2 (06:26→14:46)
[2018-05-11 06:38] LABS: AUTOMATED NEUTROPHIL # 3.5 TH/MM3 (1.8-7.7); BASOPHIL % 0.6 % (0.0-2.0); EOSINOPHIL # 0.2 TH/MM3 (0-0.4); EOSINOPHIL % 5.1 % (0.0-4.0); HEMOGLOBIN 10.4 GM/DL (11.6-15.3); LYMPH % 14.8 % (9.0-44.0); LYMPHOCYTE # 0.7 TH/MM3 (1.0-4.8); MEAN CELL VOLUME 94.1 FL (80.0-100.0); MEAN CORPUSCULAR HEMOGLOBIN 32.7 PG (27.0-34.0); MEAN CORPUSCULAR HGB CONC 34.8 % (32.0-36.0); MEAN PLATELET VOLUME 6.9 FL (7.0-11.0); MONO % 8.5 % (0.0-8.0); MONOCYTE # 0.4 TH/MM3 (0-0.9); PLATELET COUNT 170 TH/MM3 (150-450); RED BLOOD COUNT 3.18 MIL/MM3 (4.00-5.30); RED CELL DISTRIBUTION WIDTH 12.7 % (11.6-17.2); WHITE BLOOD COUNT 4.8 TH/MM3 (4.0-11.0)
[2018-05-11 07:29] VITALS: BP 94/58; PULSE 101; RESP 20; TEMP 96.8; O2SAT 95
[2018-05-11 07:53] LABS: CALCIUM 7.5 MG/DL (8.5-10.1); CREATININE 0.51 MG/DL (0.50-1.00); MAGNESIUM 1.8 MG/DL (1.5-2.5)
[2018-05-11] MEDS ORDERED: POTASSIUM CHLORIDE 20 MEQ CONTROLLED RELEASE TAB PO ONE (08:30)
[2018-05-11] MEDS: SODIUM CHLORIDE 0.9% FLUSH 10 ML FLUSH IV FLUSH SCH ×2 (09:00→20:15)
[2018-05-11] MEDS ORDERED: CALCIUM GLUCONATE INJ 1 GM in DEXTROSE 5% IN WATER 100ML INJ 100 ML IV ONE ×2 (10:00)
--- NOTE | 2018-05-11 10:09 | MB ---
cc: Marielena Rossi MD DATE: 05/11/2018 DATE OF CONSULTATION: 05/11/2018. TYPE OF CONSULTATION: GI consult. REASON FOR CONSULTATION: Intractable nausea and vomiting. HISTORY OF PRESENT ILLNESS: This is a 52-year-old female patient who is known to have metastatic cholangiocarcinoma that was treated with chemotherapy and cytotoxic medication with a good successful response. She had liver resection for the tumor. The patient was doing relatively well until a few days prior to the admission when she started to have persistent nausea and vomiting. The patient was unable to keep any of her medicines down secondary to her nausea and vomiting. She denies any epigastric pain. Denies any heartburn. Denies any change in weight or appetite, change in bowel habit or any other associated symptoms. The patient was seen initially in the hospital. The initial impression is likely urinary tract infection. Her labs are still pending and currently being treated for that. GI consulted to rule out other causes including gastritis, peptic ulcer disease or gastric outlet obstruction. REVIEW OF SYSTEMS: All 14-point review of systems are negative other than the ones mentioned in history of present illness. PAST MEDICAL HISTORY: Metastatic cholangiocarcinoma, dyslipidemia, irritable bowel syndrome, nonfunctioning left kidney, anxiety disorder, hypertension. PAST SURGICAL HISTORY: She had history of cholecystectomy, liver resection in 2013, left nephrectomy in 2011. MEDICATIONS: 1. Vancomycin. 2. Cefepime. 3. Reglan. 4. Potassium chloride. 5. Micafungin. ALLERGIES: SULFA COMPOUND AND BEE VENOM. FAMILY HISTORY: Her mom from a brain aneurysm at age of 56. Father is alive. PSYCHOSOCIAL HISTORY: She lives with her . Quit smoking several years ago after a long history of smoking. She consumes moderately alcohol. No IV drug abuse. PHYSICAL EXAMINATION: GENERAL: The patient was found to be comfortable, not in distress or in pain, hemodynamically stable. HEAD AND NECK: Pupils equal and reactive to light. NECK: Supple neck. No lymphadenopathy. No thyromegaly. CHEST: Clear to auscultation bilaterally. No crackles or wheezes. HEART: Regular rate and rhythm. No murmurs, although a little bit tachycardic. ABDOMEN: Slightly distended, especially in the upper part. Minimal tenderness on deep palpation, but no rebound, tenderness or rigidity. No hepatosplenomegaly. No palpable masses. LOWER EXTREMITIES: No edema. Normal pulses. NEUROLOGIC: Nonfocal. LABORATORY DATA: Reveal hemoglobin of 10.4, hematocrit 30.0, normal indices. Electrolytes showed a sodium of 133, otherwise unremarkable labs. IMAGING STUDIES: CT of the chest showed lung nodule consistent with metastatic disease, left pleural effusion. ASSESSMENT AND PLAN: A 52-year-old female patient with known case of metastatic cholangiocarcinoma, status post liver resection, followed by chemotherapy, cytotoxic and immunosuppressive medication, presented with intractable nausea and vomiting, likely is presenting with the followin. Intractable nausea and vomiting. 2. Metastatic cholangiocarcinoma. 3. Anemia of chronic disorder. 4. Poorly responding to antiemetic. Given the fact that the patient is not responding to conservative approach and supportive measure, we will proceed with upper endoscopy to rule out peptic ulcer disease, gastritis, gastric outlet obstruction. The procedure was explained to the patient, including risk, benefits and possible complication and she agreed to proceed with that. We will continue the patient on a clear liquid diet, n.p.o. after midnight and an upper endoscopy in the morning. Further recommendation to follow. Thank you for the consult. Marielena Rossi MD LEANDRO/TL , 09:45 AM , 10:08 AM
[2018-05-11 11:07] VITALS: BP 99/63; PULSE 104; RESP 20; TEMP 97.2; O2SAT 95
[2018-05-11] MEDS: VANCOMYCIN 500 MG VIAL (FOR ORAL USE ONLY) PO SCH ×3 (12:34→20:16)
[2018-05-11] MEDS: METOCLOPRAMIDE HCL 10 MG/2 ML VIAL IVS PRN ×2 (12:35→20:16)
--- NOTE | 2018-05-11 13:17 | HHI.PR ---
Addendum to Inpatient Note Additional Information C.diff positive Urine clx cw skin contam dw pt : she had diarrhea on admission day, no BMs over last 2 days C/o crampy abd pain which stays the same or slightly worse will start vanco PO 250 qid dc iv vanco, cefepime and micafungin Rosei Ross MD May 11, 2018 13:17
--- NOTE | 2018-05-11 13:28 | HHI.PR ---
Subjective Remarks Pt seen earlier today She states that she feels a bit better today. She denies any vomiting this morning but admits to nausea but seems to be better. Abdominal pain is about the same. Objective Vitals Vital Signs Date Time Temp Pulse Resp B/P (MAP) Pulse Ox O2 Delivery O2 Flow Rate FiO2 05/11/18 11:07 97.2 104 20 99/63 (75) 95 05/11/18 07:29 96.8 101 20 94/58 (70) 95 05/11/18 02:35 100.6 05/10/18 23:50 101.1 122 20 117/75 (89) 91 05/10/18 20:00 99.8 108 20 129/84 (99) 92 05/10/18 15:04 97.4 100 20 99/63 (75) 92 I/O 05/10/18 05/10/18 05/10/18 05/11/18 05/11/18 05/11/18 07:00 15:00 23:00 07:00 15:00 23:00 Intake Total 240 ml 100 ml 860 ml 1120 ml 690 ml Balance 240 ml 100 ml 860 ml 1120 ml 690 ml Intake Oral 240 ml 860 ml 120 ml 240 ml IV Total 100 ml 1000 ml 450 ml # Voids 2 1 5 3 # Bowel Movements 0 1 Result Diagram: 05/11/18 0610 05/11/18 0610 Imaging Last Impressions Chest X-Ray 05/09/18 0000 Signed Impressions: CONCLUSION: 1. Moderate size left pleural effusion with associated compressive atelectasis and/or consolidation. 2. There is mild atelectasis versus consolidation at the right lung base. A sm all right pleural effusion is present. 3. Multiple bilateral pulmonary nodules are consistent with the known history of metastatic disease. Chest CT 05/09/18 0000 Signed Impressions: CONCLUSION: 1. There are lung nodules consistent with metastatic disease, however overall they are smaller compared to the prior study from 2017. 2. There is a large left pleural effusion not present previously with pleural- based masses on the left side appears larger since the prior exam characteristi c of worsening pleural-based metastatic disease. 3. Left lung base consolidation and/or compressive collapse. Objective Remarks GENERAL: Patient appears older than stated age, looks more alert this morning and more talkative CARDIOVASCULAR: Regular rate and rhythm without murmurs RESPIRATORY: Clear to auscultation. Breath sounds equal bilaterally. No wheezes GASTROINTESTINAL: Abdomen soft, diffusely tender to palpation. Normal and active bowel sounds. MUSCULOSKELETAL: Extremities without edema. 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 She has been receiving immunotherapy. U/A initially was concerning for a UTI however urine cx 10-50, 000 CFU/ML mixed gram pos sophie (prob contaminant) Dr. Euceda, oncologist, evaluated the patient. Concerned about adrenal insufficiency which could be a side effect/toxicity related to the checkpoint inhibitor she is on. Cortisol level low. Cosyntropin test confirms adrenal insufficiency. I discussed results w Dr. Euceda and I have started her on hydrocortisone 10mg po BID w first dose now. (2) fever: Tmax 101.1 source unknown. Urine cx neg. blood cx neg x 2 days. on iv cefepime. ID evaluated the patient yesterday, added micafungin and vanco IV CT chest shows large left pleural effusion not present previously w pleural based masses on the left side which appear larger since prior exam characteristic of worsening pleural-based metastatic disease. This morning, pt found to have C. Diff, discussed case w Dr. Gaitan, ID, she recommends stopping all abx, and starting her on vanco po. 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 (4) Hypertension stable (5) Anxiety Continue home dose medications (6) Chronic pain Continue home dose medications Discharge Planning Continue to monitor pt clinically. She has been started on both po vanco for her C. Diff and hydrocortisone for the adrenal insufficiency. f/u blood cx results. Suly Valdovinos MD May 11, 2018 13:28
[2018-05-11] MEDS: HYDROCORTISONE 10 MG TAB PO SCH ×2 (14:46→20:16)
[2018-05-11 15:03] VITALS: BP 104/74; PULSE 93; RESP 20; TEMP 96.2; O2SAT 95
--- NOTE | 2018-05-11 16:22 | PD.ONC.PN ---
Subjective Subjective Remarks Still nausea despite antiemetic. Very loose large volume stool this AM. Objective Data Date Time Temp Pulse Resp B/P (MAP) Pulse Ox O2 Delivery O2 Flow Rate FiO2 05/11/18 15:03 96.2 93 20 104/74 (84) 95 05/11/18 11:07 97.2 104 20 99/63 (75) 95 05/11/18 07:29 96.8 101 20 94/58 (70) 95 05/11/18 02:35 100.6 05/10/18 23:50 101.1 122 20 117/75 (89) 91 05/10/18 20:00 99.8 108 20 129/84 (99) 92 05/11/18 05/11/18 05/11/18 07:00 15:00 23:00 Intake Total 1120 ml 690 ml Balance 1120 ml 690 ml Result Diagram: 05/11/18 0610 05/11/18 0610 Laboratory Results Laboratory Tests Test 05/10/18 21:10 05/10/18 23:25 05/11/18 06:10 05/11/18 06:45 Stool C. difficile Toxin (PCR) POSITIVE Stl C. difficile Toxin Epiderm 027 PRESUMPTIVE NEGATIVE Random Cortisol 1.6 MCG/DL 0.9 MCG/DL 2.9 MCG/DL White Blood Count 4.8 TH/MM3 Red Blood Count 3.18 MIL/MM3 Hemoglobin 10.4 GM/DL Hematocrit 30.0 % Mean Corpuscular Volume 94.1 FL Mean Corpuscular Hemoglobin 32.7 PG Mean Corpuscular Hemoglobin Concent 34.8 % Red Cell Distribution Width 12.7 % Platelet Count 170 TH/MM3 Mean Platelet Volume 6.9 FL Neutrophils (%) (Auto) 71.0 % Lymphocytes (%) (Auto) 14.8 % Monocytes (%) (Auto) 8.5 % Eosinophils (%) (Auto) 5.1 % Basophils (%) (Auto) 0.6 % Neutrophils # (Auto) 3.5 TH/MM3 Lymphocytes # (Auto) 0.7 TH/MM3 Monocytes # (Auto) 0.4 TH/MM3 Eosinophils # (Auto) 0.2 TH/MM3 Basophils # (Auto) 0.0 TH/MM3 CBC Comment DIFF FINAL Differential Comment Blood Urea Nitrogen 2 MG/DL Creatinine 0.51 MG/DL Random Glucose 72 MG/DL Calcium Level 7.5 MG/DL Magnesium Level 1.8 MG/DL Sodium Level 135 MEQ/L Potassium Level 3.2 MEQ/L Chloride Level 102 MEQ/L Carbon Dioxide Level 21.0 MEQ/L Anion Gap 12 MEQ/L Estimat Glomerular Filtration Rate 126 ML/MIN Culture Results Microbiology Date/Time Source Procedure Growth Status 05/11/18 07:55 Blood Peripheral Aerobic Blood Culture Pending Received 05/11/18 07:55 Blood Peripheral Anaerobic Blood Culture Pending Received 05/11/18 07:45 Blood Peripheral Aerobic Blood Culture Pending Received 05/11/18 07:45 Blood Peripheral Anaerobic Blood Culture Pending Received 05/10/18 23:45 Blood Line Aerobic Blood Culture Pending Received 05/10/18 23:45 Blood Line Anaerobic Blood Culture Pending Received 05/10/18 23:45 Blood Line Aerobic Blood Culture - Preliminary NO GROWTH IN 1 DAY Resulted 05/10/18 23:45 Blood Line Anaerobic Blood Culture - Preliminary NO GROWTH IN 1 DAY Resulted 05/09/18 10:26 Nasal Aspirate Influenza Types A,B Antigen (KAREN) - Final NEGATIVE FOR FLU A AND B ANTIGEN.... Complete Administered Medications Medications (Trade) Dose Ordered Sig/Severo Route PRN Reason Start Time Stop Time Status Last Admin Dose Admin Potassium Chloride/Sodium Chloride 1,000 ml @ 100 mls/hr Q10H IV 05/07/18 18:52 05/11/18 12:35 Sodium Chloride (NS Flush) 2 ml BID IV FLUSH 05/07/18 21:00 05/10/18 23:30 Metoclopramide HCl (Reglan Inj) 5 mg Q6H PRN IVS NAUSEA OR VOMITING 05/07/18 19:00 05/11/18 12:35 Acetaminophen (Tylenol) 650 mg Q4H PRN PO Temp > 100.4 05/07/18 19:00 05/10/18 23:55 Oxycodone HCl (Roxicodone) 5 mg Q4H PRN PO PAIN SCALE 6 TO 10 05/07/18 19:00 05/11/18 10:28 Pantoprazole Sodium (Protonix Inj) 40 mg Q24H IV PUSH 05/10/18 18:00 05/10/18 18:14 Ondansetron HCl (Zofran Inj) 4 mg Q8HR IV PUSH 05/10/18 17:30 05/11/18 17:29 05/11/18 14:46 Vancomycin HCl (VANCOMYCIN for oral use only) 250 mg QID PO 05/11/18 13:00 05/11/18 12:34 Hydrocortisone (Cortef) 10 mg BID PO 05/11/18 14:00 05/11/18 14:46 Objective Remarks GENERAL: Well-nourished, well-developed patient. SKIN: Warm and dry. HEAD: Normocephalic. EYES: No scleral icterus. No injection or drainage. NECK: Supple, trachea midline. No JVD or lymphadenopathy. LYMPHATIC: No adenopathy. CARDIOVASCULAR: Regular rate and rhythm without murmurs. RESPIRATORY: Breath sounds equal bilaterally. No accessory muscle use. GASTROINTESTINAL: Abdomen soft, non-tender, nondistended. EXTREMITIES: No cyanosis, or edema. MUSCULOSKELETAL: Adequate muscle tone. Assessment/Plan Problem List: (1) Cholangiocarcinoma metastatic to liver ICD Codes: C22.1 - Intrahepatic bile duct carcinoma; C78.7 - Secondary malignant neoplasm of liver and intrahepatic bile duct Status: Chronic Plan: Participating in Phase II clinical trial at [facility]. Receiving Nivolumab. Responding to treatment. (2) Intractable nausea and vomiting ICD Codes: R11.2 - Nausea with vomiting, unspecified Status: Acute Plan: Pervasive persistent nausea with vomiting. Decrease PO intake. Evaluation for adrenal insufficiency, confirmed. Cortisol level low in afternoon and in AM and after ACTH stimulation. Mild decrease in BP, low sodium also consistent. 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 Assessment 52 y/o woman with metastatic cholangiocarcinoma on nivolumab, course complicated by fevers and nausea and vomiting, diagnosed from adrenal insufficiency. GI work up on going to r/o out causes. Course complicated with diarrhea positive for C diff. Plan 1. Start hydrocortisone 10mg BID 2. Tx C diff. 3. Monitor diarrhea 4. Monitor electrolytes 5. DC scheduled Zofran Problem Qualifiers (1) Intractable nausea and vomiting: Qualified Codes: R11.2 - Nausea with vomiting, unspecified Lula Euceda MD May 11, 2018 16:22
[2018-05-11] MEDS: PANTOPRAZOLE SODIUM 40 MG VIAL IV PUSH SCH (18:06)
[2018-05-11 20:00] VITALS: BP 98/78; PULSE 116; RESP 20; TEMP 98.2; O2SAT 96
[2018-05-11] MEDS: ONDANSETRON HCL 4 MG/2 ML VIAL IV PUSH PRN (22:50)
[2018-05-12] VITALS: BP 100/72; PULSE 87; RESP 20; TEMP 96.2; O2SAT 95
[2018-05-12] MEDS: NS + KCL 20 MEQ INJ 1,000 ML IV SCH ×4 (00:20→21:49)
[2018-05-12] MEDS ORDERED: PHARMACY ORDERED LAB ONE (04:45)
[2018-05-12 08:40] VITALS: BP 108/79; PULSE 81; RESP 20; TEMP 96.5; O2SAT 96
[2018-05-12] MEDS: ONDANSETRON HCL 4 MG/2 ML VIAL IV PUSH PRN ×2 (08:41→22:03)
[2018-05-12] MEDS: HYDROCORTISONE 10 MG TAB PO SCH ×2 (08:44→19:44)
[2018-05-12] MEDS: SODIUM CHLORIDE 0.9% FLUSH 10 ML FLUSH IV FLUSH SCH ×2 (08:44→20:03)
[2018-05-12] MEDS: VANCOMYCIN 500 MG VIAL (FOR ORAL USE ONLY) PO SCH ×4 (08:44→19:44)
--- NOTE | 2018-05-12 09:43 | HHI.PR ---
Subjective Remarks Pt feels that she has a bit more energy today. Still feels nauseous. Had 2 BMs but not very loose. No vomiting. Still has abdominal pain and feels very "gassy ". She is ready to get the EGD over with. Objective Vitals Vital Signs Date Time Temp Pulse Resp B/P (MAP) Pulse Ox O2 Delivery O2 Flow Rate FiO2 05/12/18 08:40 96.5 81 20 108/79 (89) 96 Automatic Cuff 05/12/18 00:00 96.2 87 20 100/72 (81) 95 05/11/18 20:00 98.2 116 20 98/78 (85) 96 05/11/18 15:03 96.2 93 20 104/74 (84) 95 05/11/18 11:07 97.2 104 20 99/63 (75) 95 I/O 05/11/18 05/11/18 05/11/18 05/12/18 05/12/18 05/12/18 07:00 15:00 23:00 07:00 15:00 23:00 Intake Total 1120 ml 690 ml 1960 ml 1817 ml Balance 1120 ml 690 ml 1960 ml 1817 ml Intake Oral 120 ml 240 ml 960 ml IV Total 1000 ml 450 ml 1000 ml 1817 ml # Voids 3 4 7 # Bowel Movements 1 0 4 Result Diagram: 05/11/18 0610 05/11/18 0610 Imaging Last Impressions Chest X-Ray 05/09/18 0000 Signed Impressions: CONCLUSION: 1. Moderate size left pleural effusion with associated compressive atelectasis and/or consolidation. 2. There is mild atelectasis versus consolidation at the right lung base. A sm all right pleural effusion is present. 3. Multiple bilateral pulmonary nodules are consistent with the known history of metastatic disease. Chest CT 05/09/18 0000 Signed Impressions: CONCLUSION: 1. There are lung nodules consistent with metastatic disease, however overall they are smaller compared to the prior study from 2017. 2. There is a large left pleural effusion not present previously with pleural- based masses on the left side appears larger since the prior exam characteristi c of worsening pleural-based metastatic disease. 3. Left lung base consolidation and/or compressive collapse. Objective Remarks GENERAL: Patient appears older than stated age, looks more alert this morning and more talkative, even smiled and laughed CARDIOVASCULAR: Regular rate and rhythm without murmurs RESPIRATORY: Clear to auscultation. Breath sounds equal bilaterally. No wheezes GASTROINTESTINAL: Abdomen soft, diffusely tender to palpation. decreased bowel sounds but present. MUSCULOSKELETAL: Extremities without edema. 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 She has been receiving immunotherapy. U/A initially was concerning for a UTI however urine cx 10-50, 000 CFU/ML mixed gram pos sophie (prob contaminant) Dr. Euceda, oncologist, evaluated the patient. Concerned about adrenal insufficiency which could be a side effect/toxicity related to the checkpoint inhibitor she is on. Cortisol level low. Cosyntropin test confirms adrenal insufficiency. She was started on hydrocortisone 10mg po BID and pt is starting to feel better. Dr. Euceda consulted GI consult and they evaluated the pt and she is scheduled for EGD this morning (2) fever: Tmax 100.6 source unknown. Urine cx neg. blood cx neg x 2 days. s/p iv cefepime, micafungin and vanco IV CT chest shows large left pleural effusion not present previously w pleural based masses on the left side which appear larger since prior exam characteristic of worsening pleural-based metastatic disease. Pt found to have C. Diff, discussed case w Dr. Gaitan, ID, and recommendation was stopping all abx, and pt currently on vanco po. 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 (4) Hypertension stable (5) Anxiety Continue home dose medications (6) Chronic pain Continue home dose medications Discharge Planning Continue to monitor pt clinically. continue po vanco for her C. Diff and hydrocortisone for the adrenal insufficiency. f/u blood cx until final. Pt is scheduled for EGD this morning Problem Qualifiers (1) Intractable nausea and vomiting: Qualified Codes: R11.2 - Nausea with vomiting, unspecified Suly Valdovinos MD May 12, 2018 09:43
[2018-05-12 11:21] LABS: AUTOMATED NEUTROPHIL # 5.4 TH/MM3 (1.8-7.7); BASOPHIL % 0.4 % (0.0-2.0); EOSINOPHIL % 0.6 % (0.0-4.0); HEMATOCRIT 33.3 % (35.0-46.0); LYMPH % 10.9 % (9.0-44.0); LYMPHOCYTE # 0.7 TH/MM3 (1.0-4.8); MEAN CELL VOLUME 96.8 FL (80.0-100.0); MEAN CORPUSCULAR HGB CONC 33.1 % (32.0-36.0); MEAN PLATELET VOLUME 6.7 FL (7.0-11.0); MONO % 4.8 % (0.0-8.0); MONOCYTE # 0.3 TH/MM3 (0-0.9); NEUT % 83.3 % (16.0-70.0); PLATELET COUNT 211 TH/MM3 (150-450); RED BLOOD COUNT 3.44 MIL/MM3 (4.00-5.30); RED CELL DISTRIBUTION WIDTH 12.8 % (11.6-17.2); WHITE BLOOD COUNT 6.4 TH/MM3 (4.0-11.0)
[2018-05-12 11:30] VITALS: BP 106/81; PULSE 87; RESP 20; TEMP 97.3; O2SAT 95
[2018-05-12 11:31] LABS: CALCIUM 8.2 MG/DL (8.5-10.1)
[2018-05-12 11:32] LABS: BICARBONATE 17.3 MEQ/L (21.0-32.0)
[2018-05-12 11:43] LABS: CREATININE 0.47 MG/DL (0.50-1.00); MAGNESIUM 1.6 MG/DL (1.5-2.5)
--- NOTE | 2018-05-12 13:47 | PD.PROCEDR ---
GI Procedure PROCEDURE PERFORMED EGD with biopsy INDICATION FOR PROCEDURE Nausea vomiting PROCEDURE: The procedure, risks and benefits were discussed with Ms. Rosales and informed consent was obtained. Anesthesia sedated her with Diprivan. She was placed in the left lateral decubitus position. EGD: The Pentax videoscope was introduced through the oropharynx and advanced to the second portion of the duodenum under direct visualization. Retroflexion was performed in the stomach. Biopsy from the antrum for gastritis, dilation of the distal esophagus for esophageal ring savory guidewire dilator size 17 mm ESTIMATED BLOOD LOSS: None SPECIMENS REMOVED: Antrum COMPLICATIONS: None IMPRESSION: Gastritis mostly in the antrum biopsy was done from the antrum Distal esophageal ring status post dilation with savory guidewire dilator size 17 mm Normal otherwise No significant finding to explain the nausea vomiting so I favor that this is most likely related to side effect of the treatment and her malignancy PLAN: Await biopsy Diet as tolerated Symptomatic treatment with antiemetics as needed Cindy Myles MD May 12, 2018 13:47
--- NOTE | 2018-05-12 13:49 | HHI.GIFU ---
Subjective Remarks Patient laying in bed comfortably, feels better, less nausea, no vomiting Objective Vitals I&O Vital Signs Date Time Temp Pulse Resp B/P (MAP) Pulse Ox O2 Delivery O2 Flow Rate FiO2 05/12/18 11:30 97.3 87 20 106/81 (89) 95 05/12/18 08:40 96.5 81 20 108/79 (89) 96 Automatic Cuff 05/12/18 00:00 96.2 87 20 100/72 (81) 95 05/11/18 20:00 98.2 116 20 98/78 (85) 96 05/11/18 15:03 96.2 93 20 104/74 (84) 95 I/O 05/11/18 05/11/18 05/11/18 05/12/18 05/12/18 05/12/18 07:00 15:00 23:00 07:00 15:00 23:00 Intake Total 1120 ml 690 ml 1960 ml 1817 ml 150 ml Balance 1120 ml 690 ml 1960 ml 1817 ml 150 ml Intake Oral 120 ml 240 ml 960 ml IV Total 1000 ml 450 ml 1000 ml 1817 ml Other 150 ml # Voids 3 4 7 # Bowel Movements 1 0 4 Laboratory Laboratory Tests Test 05/12/18 11:15 White Blood Count 6.4 Red Blood Count 3.44 Hemoglobin 11.0 Hematocrit 33.3 Mean Corpuscular Volume 96.8 Mean Corpuscular Hemoglobin 32.0 Mean Corpuscular Hemoglobin Concent 33.1 Red Cell Distribution Width 12.8 Platelet Count 211 Mean Platelet Volume 6.7 Neutrophils (%) (Auto) 83.3 Lymphocytes (%) (Auto) 10.9 Monocytes (%) (Auto) 4.8 Eosinophils (%) (Auto) 0.6 Basophils (%) (Auto) 0.4 Neutrophils # (Auto) 5.4 Lymphocytes # (Auto) 0.7 Monocytes # (Auto) 0.3 Eosinophils # (Auto) 0.0 Basophils # (Auto) 0.0 CBC Comment DIFF FINAL Differential Comment Blood Urea Nitrogen 2 Creatinine 0.47 Random Glucose 90 Calcium Level 8.2 Magnesium Level 1.6 Sodium Level 133 Potassium Level 4.2 Chloride Level 101 Carbon Dioxide Level 17.3 Anion Gap 15 Estimat Glomerular Filtration Rate 138 Date/Time Source Procedure Growth Status 05/11/18 07:55 Blood Peripheral Aerobic Blood Culture - Preliminary NO GROWTH IN 1 DAY Resulted 05/11/18 07:55 Blood Peripheral Anaerobic Blood Culture - Preliminary NO GROWTH IN 1 DAY Resulted 05/09/18 10:26 Nasal Aspirate Influenza Types A,B Antigen (KAREN) - Final NEGATIVE FOR FLU A AND B ANTIGEN.... Complete Physical Exam HEENT: Pupils round and reactive to light; normocephalic; atraumatic; no jaundice. Throat is clear. NECK: Neck is supple, no JVD, no lymphadenopathy. CHEST: Chest is clear to auscultation and percussion. CARDIAC: Regular rate and rhythm with no murmur gallop or rubs. ABDOMEN: Soft, nondistended, nontender; no hepatosplenomegaly; bowel sounds are present in all four quadrants. EXTREMITIES: No clubbing, cyanosis, or edema. SKIN: Normal; no rash; no jaundice. [employer]: No focal deficits; alert and oriented times three. Assessment and Plan Plan Patient is 52-year-old lady with cholangiocarcinoma with metastasis, she had chemotherapy and now she is on immunotherapy at [facility] she came with nausea vomiting had upper endoscopy today Patient also has C. difficile positive she is on antibiotics no diarrhea at this time, this also may be contributing to her symptom IMPRESSION: Gastritis mostly in the antrum biopsy was done from the antrum Distal esophageal ring status post dilation with savory guidewire dilator size 17 mm Normal otherwise No significant finding to explain the nausea vomiting so I favor that this is most likely related to side effect of the treatment and her malignancy PLAN: Await biopsy Diet as tolerated Symptomatic treatment with antiemetics as needed Cindy Myles MD May 12, 2018 13:49
--- NOTE | 2018-05-12 15:02 | EKG ---
Date Performed: 05/11/2018 Time Performed: 22:02:23 PTAGE: 52 years EKG: Sinus rhythm LOW QRS VOLTAGE IN PRECORDIAL LEADS INFERIOR MYOCARDIAL INFARCTION ANTEROSEPTAL MYOCARDIAL INFARCTIO N ABNORMAL ECG NO PREVIOUS TRACING Consider inferior myocardial infarction - age indeterminate. Prolonge d corrected QT interval. DOCTOR: Ze Gaitan Interpretating Date/Time 05/12/2018 14:58:37
[2018-05-12] MEDS: METOCLOPRAMIDE HCL 10 MG/2 ML VIAL IVS PRN (15:04)
[2018-05-12 15:50] VITALS: BP 106/81; PULSE 77; RESP 20; TEMP 98.2; O2SAT 96
--- NOTE | 2018-05-12 17:17 | PD.ONC.PN ---
Subjective Subjective Remarks Patient seen and examined, vital signs, labs and medications reviewed. Microbiology reviewed as well; she is C. difficile toxin positive. Subjectively; she reports feeling much improved today, in fact she reports eating a quarter for plate which is more than she has eaten for several days. She continues to have some nausea and diarrhea but these symptoms have decreased significantly when compared to yesterday and the day before. Objective Data Date Time Temp Pulse Resp B/P (MAP) Pulse Ox O2 Delivery O2 Flow Rate FiO2 05/12/18 15:50 98.2 77 20 106/81 (89) 96 05/12/18 14:20 85 20 112/73 (86) 95 05/12/18 14:05 98.0 87 20 104/76 (85) 96 05/12/18 13:46 89 16 111/87 (95) 98 05/12/18 11:30 97.3 87 20 106/81 (89) 95 05/12/18 08:40 96.5 81 20 108/79 (89) 96 Automatic Cuff 05/12/18 00:00 96.2 87 20 100/72 (81) 95 05/11/18 20:00 98.2 116 20 98/78 (85) 96 05/12/18 05/12/18 05/12/18 07:00 15:00 23:00 Intake Total 1817 ml 150 ml Balance 1817 ml 150 ml Result Diagram: 05/12/18 1115 05/12/18 1115 Laboratory Results Laboratory Tests Test 05/12/18 11:15 White Blood Count 6.4 TH/MM3 Red Blood Count 3.44 MIL/MM3 Hemoglobin 11.0 GM/DL Hematocrit 33.3 % Mean Corpuscular Volume 96.8 FL Mean Corpuscular Hemoglobin 32.0 PG Mean Corpuscular Hemoglobin Concent 33.1 % Red Cell Distribution Width 12.8 % Platelet Count 211 TH/MM3 Mean Platelet Volume 6.7 FL Neutrophils (%) (Auto) 83.3 % Lymphocytes (%) (Auto) 10.9 % Monocytes (%) (Auto) 4.8 % Eosinophils (%) (Auto) 0.6 % Basophils (%) (Auto) 0.4 % Neutrophils # (Auto) 5.4 TH/MM3 Lymphocytes # (Auto) 0.7 TH/MM3 Monocytes # (Auto) 0.3 TH/MM3 Eosinophils # (Auto) 0.0 TH/MM3 Basophils # (Auto) 0.0 TH/MM3 CBC Comment DIFF FINAL Differential Comment Blood Urea Nitrogen 2 MG/DL Creatinine 0.47 MG/DL Random Glucose 90 MG/DL Calcium Level 8.2 MG/DL Magnesium Level 1.6 MG/DL Sodium Level 133 MEQ/L Potassium Level 4.2 MEQ/L Chloride Level 101 MEQ/L Carbon Dioxide Level 17.3 MEQ/L Anion Gap 15 MEQ/L Estimat Glomerular Filtration Rate 138 ML/MIN Culture Results Microbiology Date/Time Source Procedure Growth Status 05/11/18 07:55 Blood Peripheral Aerobic Blood Culture - Preliminary NO GROWTH IN 1 DAY Resulted 05/11/18 07:55 Blood Peripheral Anaerobic Blood Culture - Preliminary NO GROWTH IN 1 DAY Resulted 05/11/18 07:45 Blood Peripheral Aerobic Blood Culture - Preliminary NO GROWTH IN 1 DAY Resulted 05/11/18 07:45 Blood Peripheral Anaerobic Blood Culture - Preliminary NO GROWTH IN 1 DAY Resulted 05/10/18 23:45 Blood Line Aerobic Blood Culture - Preliminary NO GROWTH IN 1 DAY Resulted 05/10/18 23:45 Blood Line Anaerobic Blood Culture - Preliminary NO GROWTH IN 1 DAY Resulted 05/10/18 23:45 Blood Line Aerobic Blood Culture - Preliminary NO GROWTH IN 2 DAYS Resulted 05/10/18 23:45 Blood Line Anaerobic Blood Culture - Preliminary NO GROWTH IN 2 DAYS Resulted Administered Medications Medications (Trade) Dose Ordered Sig/Severo Route PRN Reason Start Time Stop Time Status Last Admin Dose Admin Potassium Chloride/Sodium Chloride 1,000 ml @ 100 mls/hr Q10H IV 05/07/18 18:52 05/12/18 08:45 Sodium Chloride (NS Flush) 2 ml BID IV FLUSH 05/07/18 21:00 05/12/18 08:44 Metoclopramide HCl (Reglan Inj) 5 mg Q6H PRN IVS NAUSEA OR VOMITING 05/07/18 19:00 05/12/18 15:04 Acetaminophen (Tylenol) 650 mg Q4H PRN PO Temp > 100.4 05/07/18 19:00 05/10/18 23:55 Oxycodone HCl (Roxicodone) 5 mg Q4H PRN PO PAIN SCALE 6 TO 10 05/07/18 19:00 05/12/18 15:26 Pantoprazole Sodium (Protonix Inj) 40 mg Q24H IV PUSH 05/10/18 18:00 05/11/18 18:06 Vancomycin HCl (VANCOMYCIN for oral use only) 250 mg QID PO 05/11/18 13:00 05/12/18 08:44 Hydrocortisone (Cortef) 10 mg BID PO 05/11/18 14:00 05/12/18 08:44 Ondansetron HCl (Zofran Inj) 4 mg Q8HR PRN IV PUSH NAUSEA OR VOMITING 05/11/18 22:00 05/12/18 08:41 Objective Remarks GENERAL: Well-nourished, well-developed patient. SKIN: Warm and dry. HEAD: Normocephalic. EYES: No scleral icterus. No injection or drainage. NECK: Supple, trachea midline. No JVD or lymphadenopathy. LYMPHATIC: No adenopathy. CARDIOVASCULAR: Regular rate and rhythm without murmurs. RESPIRATORY: Breath sounds equal bilaterally. No accessory muscle use. GASTROINTESTINAL: Abdomen soft, non-tender, nondistended. EXTREMITIES: No cyanosis, or edema. MUSCULOSKELETAL: Adequate muscle tone. 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 Receiving Nivolumab. Responding to treatment. (2) Intractable nausea and vomiting ICD Codes: R11.2 - Nausea with vomiting, unspecified Status: Acute Plan: Pervasive persistent nausea with vomiting. Decrease PO intake. Evaluation for adrenal insufficiency, confirmed. Cortisol level low in afternoon and in AM and after ACTH stimulation. Mild decrease in BP, low sodium also consistent. 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 Assessment 52 y/o woman with metastatic cholangiocarcinoma on nivolumab, course complicated by fevers and nausea and vomiting, diagnosed from adrenal insufficiency. GI work up on going to r/o out causes. Course complicated with diarrhea positive for C diff. 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 twice daily. 2. C. difficile colitis: Continue oral vancomycin. This seems to be effective in controlling diarrhea. 3. Nausea and vomiting: Improved with antiemetic therapy and proton pump inhibitor. Disposition: Continue ongoing care. Encourage p.o. intake. Discharge home when her nausea and vomiting are controlled and when she is able to maintain oral intake. She will resume follow-up at the [facility] for management of her metastatic cholangiocarcinoma. Problem Qualifiers (1) Intractable nausea and vomiting: Qualified Codes: R11.2 - Nausea with vomiting, unspecified Chandu Carl MD May 12, 2018 17:17
[2018-05-12] MEDS: PANTOPRAZOLE SODIUM 40 MG VIAL IV PUSH SCH (17:37)
[2018-05-12 20:00] VITALS: BP 115/90; PULSE 90; RESP 20; TEMP 96.8; O2SAT 98
[2018-05-13] VITALS: BP 128/93; PULSE 84; RESP 20; TEMP 97.1; O2SAT 96
[2018-05-13 05:20] LABS: AUTOMATED NEUTROPHIL # 4.8 TH/MM3 (1.8-7.7); BASOPHIL # 0.1 TH/MM3 (0-0.2); BASOPHIL % 0.8 % (0.0-2.0); EOSINOPHIL # 0.1 TH/MM3 (0-0.4); EOSINOPHIL % 0.8 % (0.0-4.0); HEMATOCRIT 32.9 % (35.0-46.0); HEMOGLOBIN 10.8 GM/DL (11.6-15.3); LYMPH % 16.3 % (9.0-44.0); LYMPHOCYTE # 1.1 TH/MM3 (1.0-4.8); MEAN CELL VOLUME 96.8 FL (80.0-100.0); MEAN CORPUSCULAR HEMOGLOBIN 31.9 PG (27.0-34.0); MEAN PLATELET VOLUME 6.8 FL (7.0-11.0); MONOCYTE # 0.4 TH/MM3 (0-0.9); NEUT % 76.1 % (16.0-70.0); PLATELET COUNT 236 TH/MM3 (150-450); RED CELL DISTRIBUTION WIDTH 12.8 % (11.6-17.2); WHITE BLOOD COUNT 6.5 TH/MM3 (4.0-11.0)
[2018-05-13 05:26] LABS: CHLORIDE 104 MEQ/L (98-107); SODIUM (NA) 136 MEQ/L (136-145)
[2018-05-13 05:29] LABS: CALCIUM 8.1 MG/DL (8.5-10.1); GLUCOSE,RANDOM 94 MG/DL (74-106); MAGNESIUM 1.7 MG/DL (1.5-2.5)
[2018-05-13 05:30] LABS: BLOOD UREA NITROGEN LESS THAN 1 MG/DL (7-18)
[2018-05-13 05:33] LABS: CREATININE 0.44 MG/DL (0.50-1.00); GLOMERULAR FILTRATION RATE 149 ML/MIN (>89)
[2018-05-13 08:00] VITALS: BP 120/82; PULSE 80; RESP 18; TEMP 96; O2SAT 96
[2018-05-13] MEDS: ONDANSETRON HCL 4 MG/2 ML VIAL IV PUSH PRN (08:15)
[2018-05-13] MEDS: SODIUM CHLORIDE 0.9% FLUSH 10 ML FLUSH IV FLUSH SCH (08:17)
[2018-05-13] MEDS: VANCOMYCIN 500 MG VIAL (FOR ORAL USE ONLY) PO SCH ×2 (08:17→14:19)
[2018-05-13] MEDS: NS + KCL 20 MEQ INJ 1,000 ML IV SCH (08:18)
[2018-05-13] MEDS: HYDROCORTISONE 10 MG TAB PO SCH (08:18)
--- NOTE | 2018-05-13 10:32 | HHI.PR ---
Subjective Remarks Patient seen and evaluated in follow-up for C. difficile colitis, gastritis and nausea vomiting. Patient also with adrenal insufficiency Tolerating diet better. Patient would like to go home Objective Vitals Vital Signs Date Time Temp Pulse Resp B/P (MAP) Pulse Ox O2 Delivery O2 Flow Rate FiO2 05/13/18 08:00 96.0 80 18 120/82 (95) 96 05/13/18 00:00 97.1 84 20 128/93 (105) 96 05/12/18 20:00 96.8 90 20 115/90 (98) 98 05/12/18 15:50 98.2 77 20 106/81 (89) 96 05/12/18 14:20 85 20 112/73 (86) 95 05/12/18 14:05 98.0 87 20 104/76 (85) 96 05/12/18 13:46 89 16 111/87 (95) 98 05/12/18 11:30 97.3 87 20 106/81 (89) 95 I/O 05/12/18 05/12/18 05/12/18 05/13/18 05/13/18 05/13/18 07:00 15:00 23:00 07:00 15:00 23:00 Intake Total 1817 ml 150 ml 880 ml 1200 ml Balance 1817 ml 150 ml 880 ml 1200 ml Intake Oral 30 ml IV Total 1817 ml 850 ml 1200 ml Other 150 ml # Voids 7 9 4 # Bowel Movements 4 2 4 Result Diagram: 05/13/18 0500 05/13/18 0500 Imaging Last Impressions Chest X-Ray 05/09/18 0000 Signed Impressions: CONCLUSION: 1. Moderate size left pleural effusion with associated compressive atelectasis and/or consolidation. 2. There is mild atelectasis versus consolidation at the right lung base. A sm all right pleural effusion is present. 3. Multiple bilateral pulmonary nodules are consistent with the known history of metastatic disease. Chest CT 05/09/18 0000 Signed Impressions: CONCLUSION: 1. There are lung nodules consistent with metastatic disease, however overall they are smaller compared to the prior study from 2017. 2. There is a large left pleural effusion not present previously with pleural- based masses on the left side appears larger since the prior exam characteristi c of worsening pleural-based metastatic disease. 3. Left lung base consolidation and/or compressive collapse. Objective Remarks Left chest port GENERAL: This is a well-nourished, well-developed patient, in no apparent distress. CARDIOVASCULAR: Regular rate and rhythm without murmurs, gallops, or rubs. RESPIRATORY: Clear to auscultation. Breath sounds equal bilaterally. No wheezes , rales, or rhonchi. GASTROINTESTINAL: Abdomen soft, non-tender, nondistended. Normal active bowel sounds MUSCULOSKELETAL: Extremities without clubbing, cyanosis, or edema. NEURO: Alert & Oriented x4 to person, place, time, situation. 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 Advised her to follow-up outpatient. Patient with known recurrent pleural effusion likely secondary to malignancy Currently asymptomatic We will follow-up with the [facility] team (4) Gastritis ICD Code: K29.70 - Gastritis, unspecified, without bleeding Plan: Status post EGD Gastritis mostly in the antrum biopsy was done from the antrum Continue PPI Distal esophageal ring status post dilation with savory guidewire dilator size 17 mm (5) C. difficile colitis ICD Code: A04.72 - Enterocolitis due to Clostridium difficile, not specified as recurrent Plan: Continue oral vancomycin (6) Adrenal insufficiency ICD Code: E27.40 - Unspecified adrenocortical insufficiency Plan: Patient will continue with oral hydrocortisone Discharge Planning Discharge home Problem Qualifiers (1) Intractable nausea and vomiting: Qualified Codes: R11.2 - Nausea with vomiting, unspecified Yissel Choi MD May 13, 2018 10:32
[2018-05-13 12:00] VITALS: BP 120/73; PULSE 79; RESP 18; TEMP 96; O2SAT 95
--- NOTE | 2018-05-13 12:30 | HHI.DCPOC ---
Discharge Care Plan Diagnosis: (1) C. difficile colitis (2) Adrenal insufficiency Goals to Promote Your Health * To prevent worsening of your condition and complications * To maintain your health at the optimal level Directions to Meet Your Goals Take your medications as prescribed Follow your dietary instruction Follow activity as directed Keep your appointments as scheduled Take your immunizations and boosters as scheduled If your symptoms worsen call your PCP, if no PCP go to Urgent Care Center or Emergency Room Smoking is Dangerous to Your Health. Avoid second hand smoke Call the 24-hour hour crisis hotline for domestic abuse at Yissel Choi MD May 13, 2018 12:30
[2018-05-13] MEDS ORDERED: HYDRO10 PO (12:32)
[2018-05-13] MEDS ORDERED: VANC500I3 PO (12:32)
[2018-05-13] MEDS ORDERED: PROT40TA PO (12:32)
--- NOTE | 2018-05-13 12:36 | HHI.DS ---
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 difficile colitis ICD Code: A04.72 - Enterocolitis due to Clostridium difficile, not specified as recurrent (6) Adrenal insufficiency ICD Code: E27.40 - Unspecified adrenocortical insufficiency Procedures EGD Gastritis mostly in the antrum biopsy was done from the antrum Distal esophageal ring status post dilation with savory guidewire dilator size 17 mm Normal otherwise Brief History - From Admission 51-year-old female with a medical history significant for metastatic cholangiocarcinoma to the liver and lungs receiving immunotherapy at [facility]. The patient presented to the hospital with complaint of intractable nausea and vomiting. She has chronic abdominal pain and states that she has not been able to take her pain medications due to vomiting. Workup in the emergency room with urinalysis concerning for UTI. Has been requiring IV antiemetics. Patient reports she has been doing fairly well from her cancer standpoint. She has a follow-up appointment with her oncologist at [facility] in a couple of weeks. Last bowel movement was yesterday. She denies dysuria or urinary frequency. She has 1 functioning kidney. Prior history of left nephrectomy. CBC/BMP: 05/13/18 0500 05/13/18 0500 Significant Findings Laboratory Tests Test 05/10/18 14:30 05/10/18 21:10 05/10/18 23:25 05/11/18 06:10 Urine Ketones 40 mg/dL (NEG) Stool C. difficile Toxin (PCR) POSITIVE (NEGATIVE) Red Blood Count 3.18 MIL/MM3 (4.00-5.30) Hemoglobin 10.4 GM/DL (11.6-15.3) Hematocrit 30.0 % (35.0-46.0) Mean Platelet Volume 6.9 FL (7.0-11.0) Neutrophils (%) (Auto) 71.0 % (16.0-70.0) Monocytes (%) (Auto) 8.5 % (0.0-8.0) Eosinophils (%) (Auto) 5.1 % (0.0-4.0) Lymphocytes # (Auto) 0.7 TH/MM3 (1.0-4.8) Blood Urea Nitrogen 2 MG/DL (7-18) Random Glucose 72 MG/DL (74-106) Calcium Level 7.5 MG/DL (8.5-10.1) Sodium Level 135 MEQ/L (136-145) Potassium Level 3.2 MEQ/L (3.5-5.1) Test 05/11/18 06:45 05/12/18 11:15 05/13/18 05:00 Red Blood Count 3.44 MIL/MM3 (4.00-5.30) 3.40 MIL/MM3 (4.00-5.30) Hemoglobin 11.0 GM/DL (11.6-15.3) 10.8 GM/DL (11.6-15.3) Hematocrit 33.3 % (35.0-46.0) 32.9 % (35.0-46.0) Mean Platelet Volume 6.7 FL (7.0-11.0) 6.8 FL (7.0-11.0) Neutrophils (%) (Auto) 83.3 % (16.0-70.0) 76.1 % (16.0-70.0) Lymphocytes # (Auto) 0.7 TH/MM3 (1.0-4.8) Blood Urea Nitrogen 2 MG/DL (7-18) LESS THAN 1 MG/DL (-18) Creatinine 0.47 MG/DL (0.50-1.00) 0.44 MG/DL (0.50-1.00) Calcium Level 8.2 MG/DL (8.5-10.1) 8.1 MG/DL (8.5-10.1) Sodium Level 133 MEQ/L (136-145) Carbon Dioxide Level 17.3 MEQ/L (21.0-32.0) PE at Discharge Left chest port GENERAL: This is a well-nourished, well-developed patient, in no apparent distress. CARDIOVASCULAR: Regular rate and rhythm without murmurs, gallops, or rubs. RESPIRATORY: Clear to auscultation. Breath sounds equal bilaterally. No wheezes , rales, or rhonchi. GASTROINTESTINAL: Abdomen soft, non-tender, nondistended. Normal active bowel sounds MUSCULOSKELETAL: Extremities without clubbing, cyanosis, or edema. NEURO: Alert & Oriented x4 to person, place, time, situation. Moves all ext x4 Pt update on day of discharge Please see daily progress note Hospital Course This patient is a 52-year-old female came with nausea and vomiting and was found to have esophageal stricture as well as adrenal insufficiency. His C. difficile test was positive as well. Patient did improve with treatment with steroids as well as antiemetics. She had an EGD which showed stricture was dilated. Patient has a pleural effusion which she has known about in the past and will need to follow-up with her team at [facility] is currently asymptomatic. Pt Condition on Discharge: Good Discharge Disposition: Discharge Home Discharge Time: <= 30 minutes Discharge Instructions DIET: Follow Instructions for: As Tolerated, No Restrictions Activities you can perform: Regular-No Restrictions Follow up Referrals: PCP Follow-up New Medications: Pantoprazole (Protonix) 40 Mg Tab 40 MG PO DAILY for Reflux, #30 TAB 0 Refills Hydrocortisone (Cortef) 10 Mg Tab 10 MG PO BID for adrenal insufficiency, #62 TAB Take with food to decresae GI upset Vancomycin Inj (Vancomycin Inj) 500 Mg Inj 250 MG PO QID for Infection, #40 INJECTION Continued Medications: Alprazolam (Alprazolam) 0.5 Mg Tab 0.5 MG PO TID PRN for ANXIETY, TAB 0 Refills Amlodipine (Amlodipine) 2.5 Mg Tab 2.5 MG PO HS for Blood Pressure Management, #30 TAB 0 Refills Ondansetron Odt (Zofran Odt) 4 Mg Tab 4 MG SL Q6HR PRN for Nausea/Vomiting, #30 TAB 0 Refills Oxycodone (Oxycodone) 5 Mg Cap 5 MG PO Q4H PRN for PAIN, CAP 0 Refills Tramadol (Tramadol) 50 Mg Tab 50 MG PO TID PRN for PAIN, TAB 0 Refills [nausea] () 1 TAB PO DIRECTED PRN for NAUSEA Yissel Choi MD May 13, 2018 12:36
[2018-05-13] MEDS ORDERED: SODIUM CHLORIDE 0.9% FLUSH 10 ML FLUSH IV FLUSH PRN (14:30)
== END 2018-05-13 14:53 | disposition home or self-care (01) | DRG 372 ==
LOC: PHEDDLT 21:16 → PH3A 21:17 → OBSVTOIN 05-09 11:31 → PH3B 05-11 11:14
PROVIDERS: ADMIT Hospitalist; ATTEND Hospitalist
PROC: 0D738ZZ Dilation of Lower Esophagus, Via Natural or Artificial Opening Endoscopic (ICD-10-PCS; 2018-05-12)
PROC: 0DB78ZX Excision of Stomach, Pylorus, Via Natural or Artificial Opening Endoscopic, Diagnostic (ICD-10-PCS; principal; 2018-05-12 13:20)
DX: A04.72 Enterocolitis due to Clostridium difficile, not specified as recurrent (principal); C22.1 Intrahepatic bile duct carcinoma; J91.0 Malignant pleural effusion; C78.7 Secondary malignant neoplasm of liver and intrahepatic bile duct; C78.02 Secondary malignant neoplasm of left lung; C78.01 Secondary malignant neoplasm of right lung; E27.49 Other adrenocortical insufficiency; E87.1 Hypo-osmolality and hyponatremia; J98.11 Atelectasis; E83.42 Hypomagnesemia; K22.2 Esophageal obstruction; I10 Essential (primary) hypertension; D63.0 Anemia in neoplastic disease; K29.70 Gastritis, unspecified, without bleeding; K58.9 Irritable bowel syndrome, unspecified; E78.5 Hyperlipidemia, unspecified; G89.3 Neoplasm related pain (acute) (chronic); F41.9 Anxiety disorder, unspecified; Z87.891 Personal history of nicotine dependence; Z88.2 Allergy status to sulfonamides; Z91.030 Bee allergy status; Z90.5 Acquired absence of kidney
CPT/HCPCS: 71046; 71250; 74176; 80048; 80053; 81001; 82533; 83605; 83690; 83735; 84443; 85025; 85027; 87040; 87086; 87493; 87804; 88305; 88312; 93005; 96361; 96365; 96372; 96375; C1769; C9113; G0378; J0610; J0692; J0696; J0834; J1642; J2248; J2405; J2550; J2765; J3370; J3475; J3480; J7030; J7050